=== PATIENT | female | born 1990 | race Caucasian/White ===

== ENCOUNTER → 2019-06-05 14:52 | Outpatient (CLI) | payer OTHER, SELFPAY ==
--- NOTE | 2019-06-05 14:58 | US_ITS ---
PROCEDURE: US OB /MATERNAL DETAIL CLINICAL INDICATION: uterine size date discrepancy/complication Evaluate for dates COMPARISON: No exams were available for comparison FINDINGS: There is a single live fetus which is in breech presentation. The cervix is closed and measures 3 cm. The placenta is posterior and grade 1. There does appear to be an average amount of amniotic fluid. Complete survey performed and was unremarkable on the submitted images as in PACS. No discrete anomalies identified on survey imaging by technologist. Active fetus. Three-vessel cord with satisfactory umbilical cord insertion. 4- chamber heart noted. Survey of brain & ventricles Unremarkable. Face and neck survey unremarkable. Diaphragm and chest views unremarkable. Abdomen: Both kidneys noted and unremarkable. Stomach noted and satisfactory. Spine: Survey of the spine satisfactory with no anomalies identified nor imaged. Both arms and legs noted. Amniotic Fluid: Adequate. Maternal adnexa: No significant findings. Measurements: Average ultrasound age 22weeks 5days. Gestational Age 22weeks 2days Estimated due date by ultrasound age 0810/04/2019. Estimated weight 529g BPD = 22weeks 4days OFD = 23 weeks 5 days HC = 22weeks 5days AC = 23weeks 2days FL = 22weeks 2days Growth Percentile= 67% Heart Rate = 138bpm Cerebellum = 24weeks Humerus = 22weeks 6days HC/AC is 1.12 CI is 0.73 FL/BPD is 0.7 FL/AC is 0.21 IMPRESSION: There is a single live fetus in breech presentation with an average ultrasound age 22 weeks and 5 days. All parameters correlate with no obvious anomalies. Please see above for detail Dictated by: Hao Peck MD 06/05/2019 17:11 Electronically signed by Hao Peck MD in [place] 06/05/2019 17:11
== END ==
PROVIDERS: PCP Nurse Practitioner; Visit Provider Nurse Practitioner Obstetrics & Gynecology
DX: O26.849 Uterine size-date discrepancy, unspecified trimester (principal)
CPT/HCPCS: 76811

== ENCOUNTER → 2019-08-06 11:08 | Outpatient (CLI) | payer OTHER, SELFPAY ==
[2019-08-06 12:29] LABS: Basophils % 0.1 % (0.1-2.0); Eosinophils # 0.2 K/mm3 (0.0-0.4); Eosinophils % 1.2 % (0.1-12.0); Hematocrit 27.8 % (37.0-47.0); Hemoglobin 9.3 g/dL (12.2-16.2); Mean Corpuscular HGB Conc 33.6 g/dL (31.8-35.4); Mean Corpuscular Hemoglobin 25.8 pg (27.0-31.2); Mean Platelet Volume 7.8 fl (7.4-10.4); Monocytes # 0.7 K/mm3 (0.1-1.0); Monocytes % 4.7 % (1.7-9.3); Neutrophils # 10.4 K/mm3 (1.8-7.8); Neutrophils % 72.9 % (37.0-80.0); Platelet Count 251 K/mm3 (142-424); Red Blood Count 3.62 M/mm3 (4.20-5.40); Red Cell Distribution Width 14.1 % (11.5-17.5); White Blood Count 14.3 K/mm3 (4.8-10.8)
[2019-08-07 11:05] LABS: HIV Screen 4th Generation wRfx Non Reactive (Non Reactive); Rubella Antibodies, IgG 2.53 index (Immune >0.99)
[2019-08-07 11:39] LABS: Hepatitis B Surface Antigen Negative (Negative); Rapid Plasma Reagin Ab Titer Non Reactive (NonRea<1:1)
[2019-08-07 11:40] LABS: Hepatitis C Antibody <0.1 s/co ratio (0.0-0.9)
[2019-08-09 08:03] LABS: Chlordiazepoxide <0.1 ug/mL (0.1-0.9)
[2019-08-09 12:40] LABS: Acetone Negative % (0.000-0.010)
[2019-08-09 12:41] LABS: Butalbital <1 ug/mL (1-10); Diazepam <0.1 ug/mL (0.1-0.9); Ethanol Negative % (0.000-0.010); Isopropanol Negative % (0.000-0.010); Pentobarbital <1 ug/mL (1-5)
== END ==
PROVIDERS: Visit Provider Nurse Practitioner Obstetrics & Gynecology
DX: Z34.90 Encounter for supervision of normal pregnancy, unspecified, unspecified trimester (principal); F19.11 Other psychoactive substance abuse, in remission
CPT/HCPCS: 36415; 80306; 85025; 86592; 86703; 86762; 86850; 87340; 87380; G0432

== ENCOUNTER → 2019-09-17 16:41 | Outpatient (CLI) | payer OTHER, SELFPAY | PROVIDERS: Visit Provider Nurse Practitioner Obstetrics & Gynecology | DX: Z34.90 Encounter for supervision of normal pregnancy, unspecified, unspecified trimester (principal) | CPT/HCPCS: 86403 ==

== ENCOUNTER → 2019-09-20 10:21 | Outpatient (CLI) | payer OTHER, SELFPAY ==
--- NOTE | 2019-09-20 10:21 | US_ITS ---
PROCEDURE: US OB BIOPHYSICAL PROFILE CLINICAL INDICATION: sga Small for gestational age TECHNIQUE: FINDINGS: The following parameters are obtained: Average ultrasound age is Average 36weeks 3days Estimated due date by ultrasound is 10/15/2019. Estimated weight is 2,796g. This is 14th percentile Average ultrasound age is 36 weeks 3 days. BPD 37 weeks 0 days, OFD 38 weeks 5 days, HC 36 weeks 5 days, AC 35 weeks 2 days, FL 36 weeks 4 days. The HC/AC is 1.03, CI 80 percent, FL/BPD 78 percent, FL/AC 23 percent Amniotic fluid index: 9.98cm Qualitative AFV: 2 breathing movements: 2 Gross body movements: 2 Tone: 2 Biophysical profile score: 8 No obvious anomalies evident. Placenta: Posterior and lateral and grade 2-3 IMPRESSION: Live IUP at 36 weeks 3 days with an estimated weight 2796 g which is 14th percentile. Biophysical profile is 8 of 8 Amniotic fluid index is lower normal at 10 mL Placenta is posterior and grade 2-3 Dictated by: Hao Peck MD 09/20/2019 12:01 Hao Peck MD in [facility] 09/20/2019 12:01
== END ==
PROVIDERS: PCP Nurse Practitioner; Visit Provider Nurse Practitioner Obstetrics & Gynecology
DX: O36.5990 Maternal care for other known or suspected poor fetal growth, unspecified trimester, not applicable or unspecified (principal)
CPT/HCPCS: 76811; 76819

== ENCOUNTER 2019-09-21 21:52 | Outpatient (CLI) | payer OTHER, SELFPAY ==
[2019-09-21 22:06] VITALS: BMI 34.0
[2019-09-21 22:38] VITALS: BP 128/66; PULSE 104; RESP 18; TEMP 37.2; O2SAT 98; BMI 34.0
[2019-09-21 22:42] LABS: Microscopic, Urine URINE MICROSCOPIC (MICROSCOPIC)
[2019-09-21 22:56] LABS: Appearance,Urine CLEAR (Clear); Bilirubin,Urine Negative (Negative); Blood, Urine TRACE-I (Negative); Color,Urine YELLOW (Yellow); Glucose,Urine (UA) Negative (Negative); Ketones,Urine Negative (Negative); Leukocyte Esterase,Urine Negative (Negative); Nitrate,Urine Negative (Negative); Protein,Urine Negative (Negative); Specific Gravity, Urine 1.025 (1.005-1.030); Urobilinogen,Urine 0.2 EU/dl (0.2)
[2019-09-21 23:00] LABS: RBC,Urine Occasional #/hpf (0-3); WBC,Urine Occasional #/hpf (0-3)
[2019-09-21 23:06] LABS: Benzodiazepines Screen,Urine Negative ng/ml (<200)
[2019-09-21 23:07] LABS: Amphetamine/Metha Screen,Urine Negative ng/ml (<1000); Barbiturates Screen,Urine Negative ng/ml (<200)
[2019-09-21 23:08] LABS: Cannabinoid Screen,Urine Negative ng/ml (<50)
[2019-09-21 23:09] LABS: Cocaine Screen,Urine Negative ng/ml (<300); Methadone Screen,Urine Negative ng/ml (<300)
[2019-09-21 23:10] LABS: Opiate Screen,Urine Negative ng/ml (<300); Phencyclidine Screen,Urine Negative ng/ml (<25)
[2019-09-25 22:52] LABS: Buprenorphine, Urine Positive (Cutoff=10)
== END 2019-09-21 23:35 | disposition home or self-care (01) ==
LOC: OBOUT 21:54 → OB 21:54
PROVIDERS: PCP Nurse Practitioner Obstetrics & Gynecology; Visit Provider Obstetrics & Gynecology
DX: O60.03 Preterm labor without delivery, third trimester (principal); Z3A.38 38 weeks gestation of pregnancy; M54.5 Low back pain; R10.2 Pelvic and perineal pain
CPT/HCPCS: 59025; 80305; 80307; 81001

== ENCOUNTER 2019-09-30 05:17 | Inpatient (IN) | payer OTHER, SELFPAY ==
[2019-09-30 05:26] VITALS: BMI 34.1
[2019-09-30 06:29] LABS: Microscopic, Urine URINE MICROSCOPIC (MICROSCOPIC)
[2019-09-30 06:37] LABS: Basophils % 0.2 % (0.1-2.0); Eosinophils # 0.2 K/mm3 (0.0-0.4); Hematocrit 28.5 % (37.0-47.0); Hemoglobin 9.4 g/dL (12.2-16.2); Lymphocytes # 3.9 K/mm3 (0.7-4.5); Lymphocytes % 19.3 % (10-50); Mean Corpuscular HGB Conc 33.1 g/dL (31.8-35.4); Mean Corpuscular Hemoglobin 25.1 pg (27.0-31.2); Mean Corpuscular Volume 75.9 fl (81-99); Mean Platelet Volume 8.4 fl (7.4-10.4); Monocytes % 5.1 % (1.7-9.3); Neutrophils # 15.1 K/mm3 (1.8-7.8); Neutrophils % 74.4 % (37.0-80.0); Platelet Count 259 K/mm3 (142-424); Red Blood Count 3.75 M/mm3 (4.20-5.40); Red Cell Distribution Width 16.2 % (11.5-17.5); White Blood Count 20.3 K/mm3 (4.8-10.8)
[2019-09-30 06:46] LABS: Appearance,Urine CLEAR (Clear); Bilirubin,Urine Negative (Negative); Blood, Urine TRACE-I (Negative); Glucose,Urine (UA) Negative (Negative); Ketones,Urine Negative (Negative); Leukocyte Esterase,Urine Negative (Negative); Nitrate,Urine Negative (Negative); Protein,Urine Negative (Negative); Urobilinogen,Urine 0.2 EU/dl (0.2)
[2019-09-30 06:47] LABS: MANUAL DIFFERENTIAL MANUAL DIFFERENTIAL (MANUAL DIFF)
[2019-09-30 06:56] LABS: Color,Urine Dark Yellow (Yellow)
[2019-09-30 06:59] LABS: Amphetamine/Metha Screen,Urine Negative ng/ml (<1000); Benzodiazepines Screen,Urine Negative ng/ml (<200)
[2019-09-30 07:00] LABS: Barbiturates Screen,Urine Negative ng/ml (<200)
[2019-09-30 07:01] LABS: Cannabinoid Screen,Urine Negative ng/ml (<50); Cocaine Screen,Urine Negative ng/ml (<300)
[2019-09-30 07:02] LABS: Methadone Screen,Urine Negative ng/ml (<300)
[2019-09-30 07:03] LABS: Opiate Screen,Urine Negative ng/ml (<300); Phencyclidine Screen,Urine Negative ng/ml (<25)
[2019-09-30 07:04] LABS: Coronavirus 19 IgG Antibody Negative (Negative); Coronavirus 19 IgM Antibody Negative (Negative)
[2019-09-30 07:13] LABS: Eosinophils % 1 % (0-3); Lymphocytes % 25 % (10-50); Monocytes % 7 % (2-9); Neutrophils % 66 % (42-76); Total Cells Counted 100
[2019-09-30 07:14] LABS: Platelet Estimate Normal; RBC Morphology Normal
[2019-09-30 07:15] LABS: RBC,Urine Occasional #/hpf (0-3); WBC,Urine Occasional #/hpf (0-3)
[2019-09-30 07:16] LABS: Bacteria,Urine Trace /lpf
[2019-09-30 07:20] VITALS: BP 118/64; PULSE 71; RESP 18; TEMP 36.8; O2SAT 99; BMI 34.0
--- NOTE | 2019-09-30 09:13 | HMH.OBAPHP ---
OB - H&P: HPI Antepartum - History of Present Illness Chief complaint: Term occasional contractions History of present illness: She is a 29-year-old 5 para 4 at 39+ weeks gestational age. She has been having some pressure and contractions. She wanted to just go ahead and deliver. Her has been otherwise uncomplicated. - History of Present Criteria for establishing EDC:: LMP confirmed by 1st trimester US care: good care Ultrasounds: normal 1st trimester US, normal mid trimester US Obstetrical complications: none Medical complications: none [facility] History I have reviewed the patient's past medical history: Yes Medical History: Denies:: Diabetes Mellitus Type 1, Diabetes Mellitus Type 2 *Have you ever received a pneumonia vaccine?: No *Have you received a flu vaccine this season?: No Laterality Cases: Bilateral: Tonsillectomy Other Surgeries: No: Amputation: No Fractures: No - *Social History Smoking Status: Current every day smoker Tobacco Type: cigarettes # Packs/Day (cigarettes): 1 Alcohol Intake: never Alcohol Intake Frequency:: other Substance Use Type: marijuana, tranquilizers, former substance user *Occupational Status:: unemployed *Travel in the last 8 weeks: None Family Hx:: No significant family history Para: 3 Review of Systems - Review of Systems Review of systems:: pertinent systems reviewed and negative unless documented below Meds Home Medications Medication Instructions Recorded Confirmed Type buprenorphine 8 mg-naloxone 2 mg 2 tab SUBLINGUAL DAILY tab 09/17/19 09/30/19 History sublingual tablet vitamin 1 tab PO DAILY tab 09/17/19 09/30/19 History no.76-iron,carbonyl 29 mg iron-folic acid 1 mg tablet hydrOXYzine HCL [Hydroxyzine HCl] 25 mg PO TID PRN 09/30/19 09/30/19 History Allergies Allergy/AdvReac Type Severity Reaction Status Date / Time codeine [CODEINE] Allergy Mild MILD RASH Verified 09/23/19 15:09 hydrocodone [HYDROCODONE] Allergy Mild MILD RASH Verified 09/23/19 15:09 ketorolac [From TORADOL] Allergy Mild Verified 09/23/19 15:09 tramadol [TRAMADOL] Allergy Mild Verified 09/23/19 15:09 morphine [MORPHINE] Allergy Unknown MIGRAINE Verified 09/23/19 15:09 Penicillins [PENICILLINS] Allergy Unknown Verified 08/17/20 15:09 OB - H&P: Exam - Physical Exam Vital signs: Temp Pulse Resp BP Pulse Ox 98.2 F 71 18 118/64 99 09/30/19 07:20 09/30/19 07:20 09/30/19 07:20 09/30/19 07:20 09/30/19 07:20 - Constitutional no acute distress - Routine HEENT Exam Head: Present: normocephalic Eye: Present: EOMI, PERRL ENT: Present: mucous membranes moist - Routine Neck Exam Present: supple, full ROM - Routine Respiratory Exam Absent: accessory muscle use (good air entry bilaterally), respiratory distress, wheezes, crackles - Routine Cardiovascular Exam Present: RRR. Absent: murmur - Routine Abdominal Exam Present: soft, normoactive bowel sounds. Absent: tenderness, distended, guarding - Routine Rectal Exam Patient deferred: visual exam, digital exam - Routine Exam Patient deferred: external exam, groin exam, perineal exam - Routine Extremities Exam Present: full ROM. Absent: cyanosis, edema - Routine Skin Exam Present: intact. Absent: cyanosis - Routine Neurological Exam Present: alert, oriented X3 - Routine Psychiatric Exam Present: normal affect OB - Results - Labs Labs: Short CBC 09/30/19 Range/Units 05:56 WBC 20.3 H* (4.8-10.8) K/mm3 Hgb 9.4 L (12.2-16.2) g/dL Hct 28.5 L (37.0-47.0) % Plt Count 259 (142-424) K/mm3 Urine 09/30/19 Range/Units 05:56 Urine Color Dark yellow (Yellow) Urine Appearance Clear (Clear) Urine pH 7.0 (5.0-8.5) Ur Specific [place] 1.020 (1.005-1.030) Urine Protein Negative (Negative) Urine Glucose (UA) Negative (Negative) OB - A/P Antepartum - Additional Plan
--- NOTE | 2019-09-30 09:16 | HMH.LABNOT ---
Labor Note - Subjective: Date: 09/30/19 Time: 09:16 regular contraction - Objective: NST:: Reactive Contractions:: every 2-3 minutes Cervical Dilation:: 2 Effacement:: 50% Station: -2 Membranes: artificially ruptured - Fetus: Monitoring?: Yes monitoring type:: External - Assessment: Labor progressing?: Yes Cephalopelvic disproportion?: No Patient Problems: All Active Problems (Acute) - Plan: Anesthesia for epidural?: Yes Continue to labor down?: Yes Plan for ?: No Continue to monitor?: Yes Start pushing?: No
--- NOTE | 2019-09-30 09:42 | HMH.PHAINT ---
MEDICATION RECONCILIATION COMPLETED ON PATIENT USING EXTERNAL FILL HISTORY FROM PHARMACY AND [facility] TO VERIFY SUBOXONE USAGE. -GAGAN KLINED
--- NOTE | 2019-09-30 10:51 | P.PN_ITS ---
[facility] Anesthesia Checklist - Patient Identification Patient Identification: Arm Band, Verbal (Name & ) - Structural Data Admitted From: Home Planned Operative Procedure/s: Labor epidural Consent for Planned Operative Procedure(s) Verified: Yes Verified Documents: Surgical Consent, History and Physical - Chart Verification Results Verified: CBC, UA (Urine toxicology) - Additional verifications Patient : Yes Anesthesia Reactions: No - Airway Assessment C-Spine Mobility Assessed: Yes TMJ Mobility Assessed: Yes Dentition: Poor Dentition - Neurological Assessment Level of Consciousness: Awake, Alert, Appropriate, Follows Commands Hx Seizures: No Numbness or tingling in extremities: No - Psychosocial Assessment Concerns Regarding Surgery: Pt appears in pain, anxious - Anesthesia Plan Anesthesia Risk discussed: Yes Anesthesia Plan: Verified ASA Class: III Anesthesia Type: Epidural - Preoperative Comments Pre-Operative Comments: Previous epidural placements, no prior complications noted [facility] History I have reviewed the patient's past medical history: Yes Medical History: Denies:: Diabetes Mellitus Type 1, Diabetes Mellitus Type 2 *Have you ever received a pneumonia vaccine?: No *Have you received a flu vaccine this season?: No Anesthesia experience/problems:: None Laterality Cases: Bilateral: Tonsillectomy Other Surgeries: No: Amputation: No Fractures: No - *Social History Smoking Status: Current every day smoker Tobacco Type: cigarettes # Packs/Day (cigarettes): 1 Alcohol Intake: never Alcohol Intake Frequency:: other Substance Use Type: former substance user, marijuana, heroin, tranquilizers *Occupational Status:: unemployed *Travel in the last 8 weeks: None Family Hx:: No significant family history Para: 3
--- NOTE | 2019-09-30 11:22 | HMH.LABNOT ---
Labor Note - Subjective: Date: 09/30/19 Time: 11:22 - Objective: NST:: Non-reactive Contractions:: every 2-3 minutes Cervical Dilation:: 4 Effacement:: 75% Station: -1 Membranes: artificially ruptured - Fetus: monitoring type:: External - Assessment: Labor progressing?: Yes Cephalopelvic disproportion?: No Patient Problems: All Active Problems (Acute) - Plan: Anesthesia for epidural?: Yes Continue to labor down?: Yes Plan for ?: No Continue to monitor?: Yes Start pushing?: No Comment:: She is doing very well. She is very comfortable. We will expect a vaginal delivery.
[2019-09-30 11:37] VITALS: BP 124/65; PULSE 68; RESP 18; TEMP 36.6
--- NOTE | 2019-09-30 14:15 | P.PCN_ITS ---
- Delivery Note Delivery Date:: 09/30/19 Delivery Time:: 14:11 Anesthesia Type: Epidural Was labor medically induced?: Yes Induction method: per pitocin protocol Gestational age (weeks): 39 Infant delivered prior to 39 weeks?: No Infant Gender: Female at 1 minute: 8 at 5 minutes: 9 Delivery Procedure:: She is a 29-year-old 4 para 3 at 39+ weeks gestational age. She complained of a lot of pressure and discomfort and as result of that we elected to induce her labor at term. She was started on IV oxytocin and had her membranes ruptured. She progressed under labor epidural to full dilation and delivered spontaneously a liveborn female child at 2:11 PM in the afternoon of September 30, 2019. On deliver the head it was noted that there was a loose nuchal cord. This was easily reduced followed by the anterior shoulder and the rest the infant's body atraumatically. The oropharynx and nasopharynx were bulb suction. The baby was vigorous so we allowed the cord to continue to pulsate for 1 minute. The cord was then doubly clamped and cut and the was placed on the mother's abdomen for further care. The nurses assigned Apgars of 8 at 1 minute and 9 at 5 minutes. We then obtained cord blood as well as cord pH. She received IV oxytocin using gentle traction on the cord and countertraction on the fundus I was able to easily deliver the placenta intact. Had normal three-vessel cord. She has O+ blood, she is rubella immune and was group B streptococcus negative. She plans to bottlefeed. Her leather sprayer is Dr. Linares. Estimated blood loss was approximately 400 cc. There were no perineal or vaginal lacerations. Placental Delivery Description: Spontaneous
[2019-09-30 14:49] LABS: ABG Base Excess -4.1 mmol/L (-2.4-2.3); ABG HCO3 21.6 mmhg (22.0-26.0); ABG Oxygen Saturation 70 % (90-100); ABG PCO2 40.3 mmhg (35.0-45.0); ABG PH 7.35 mmol/L (7.35-7.45); ABG TCO2 22.8 mmhg (23-27)
[2019-09-30 14:53] LABS: ABG PO2 28.2 mmhg (80-100)
[2019-09-30 16:15] VITALS: BP 118/73; PULSE 72; RESP 16; TEMP 37.1; O2SAT 100
[2019-10-01 06:28] LABS: Hematocrit 24.4 % (37.0-47.0)
[2019-10-01 08:07] VITALS: BP 124/79; PULSE 79; RESP 16; TEMP 37.3; O2SAT 100
--- NOTE | 2019-10-01 08:27 | HMH.ACPN2 ---
Internal Medicine - PN: Subj *Date: 10/01/19 *Time: 08:27 Interval history: She is doing well this morning. She is eating and drinking and ambulating. She is bottlefeeding. Her lochia is normal. Her hemoglobin is low at 8.0 but she started out at 9.4. Exam Vital signs and Labs for Last 24 Hours: Temp Pulse Resp BP Pulse Ox 98.7 F 72 16 118/73 100 09/30/19 16:15 09/30/19 16:15 09/30/19 16:15 09/30/19 16:15 09/30/19 16:15 Laboratory Results - last 24 hr 09/30/19 14:45: Specimen Source Umbilical cord, ABG pH 7.35, ABG pCO2 40.3, ABG pO2 28.2 L, ABG HCO3 21.6 L, ABG Total CO2 22.8 L, ABG O2 Saturation 70 L*, ABG Base Excess -4.1 L 10/01/19 06:00: Hgb 8.0 L, Hct 24.4 L I & O for Last 24 hours: Intake & Output 09/28/19 09/29/19 09/30/19 10/01/19 11:59 11:59 11:59 11:59 Weight 199 lb 0.004 oz - Constitutional no acute distress - *Routine HEENT Exam Head: Present: normocephalic Eye: Present: EOMI, PERRL ENT: Present: mucous membranes moist Assessment and Plan (1) Normal delivery Current visit: Yes Status: Acute Category: Medical Code(s): O80 - Encounter for full-term uncomplicated delivery (2) Anemia, Current visit: Yes Status: Acute Category: Medical Code(s): O90.81 - Anemia of the puerperium - Assessment and plan all Dx Assessment and Plan for all problems:: We will go ahead and start iron tablets twice daily. We will plan to send her home tomorrow.
--- NOTE | 2019-10-01 11:35 | SW/DCPLANNER ---
Addendum entered by Azalia Davalos 10/02/19 12:39: Joelle with the Cabinet did come and write a prevention plan for this patient: can discharge home with and follow up. Joelle: [phone] Addendum entered by Hannah Ragsdale 10/01/19 15:13: CALLED THE [facility] AND SPOKE WITH JOELLE.... GAVE HIM THE ID# [id number] AND CASE WAS ACCEPTED FOR INVESTIGATION... I HAVE NOTIFIED STAFF THAT SOMEONE WILL BE HERE TO SPEAK WITH PATIENT TMRW.... Original Note: RECEIVED REFERRAL FOR THIS PATIENT STATING PATIENT HAD LATE CARE, POSITIVE FOR THC X2 THIS AND PATIENT ADMITS TO USING HEROIN IN AUGUST....PATIENT PRESENTED IN TO [facility] AFTER FEELING LOWER PRESSURE AT 39 WEEKS GESTATION.. PATIENT HAS THREE OTHER CHILDREN..10 YR OLD BOY SUKH HAGER, 5 YR OLD BOY TARA HAGER AND 3 YR OLD GIRL MARISSA ANDINO... HER LAST ONE THAT WAS BORN YESTERDAY 09/29 A GIRL FITO HAGER... PATIENT STATES SHE IS IN A [facility] CLINIC AND TAKES 16 MG PER DAY AT [facility], THIS WAS VERIFIED BY PHARMACY..SHE STATED SHE DOES NOT GET WIC BUT IS SIGNING UP WHEN SHE DISCHARGES.. SHE STATED SHE GETS FOOD STAMPS AND LIVES IN SUBSIDIZED HOUSING IN [facility], SHE STATED HER CHILDREN DOES NOT HAVE A FATHER INVOLVED. ONE OF THE CHILDREN'S FATHER COMMITTED SUICIDE, THE OTHER 2 ARE INCARCERATED.. SHE STATED THE INFANT WILL BE FOLLOWED BY [facility] AND MD IS DR VILLAR.. WHILE SHE IS IN THE HOSPITAL DR YORK IS FOLLOWING THE INFANT AND STATED HE WILL BE KEEPING HER UNTIL THE END OF THE WEEK TO WATCH FOR WITHDRAW FROM THE [employer].. I DID MAKE A CALL TO [facility] FOR INVESTIGATION IF DEEMED NECESSARY ID# [id number] I ASKED HER IF SHE HAD EVERYTHING SHE NEEDS TO TAKE THE HOME AND SHE STATED SHE HAS HER CARSEAT, BABY BED, CLOTHES, DIAPERS AND BOTTLES.. HER MOTHER IS AT BEDSIDE AND WAS ASLEEP THE WHOLE TIME I WAS THERE.. I TOLD HER ABOUT HAVING HER CARSEAT CHECKED AT THE [facility] AND ENCOURAGED HER TO STOP DOWNTOWN ON HER WAY HOME.. SHE IS TO DISCHARGE TMRW..WILL FOLLOW UP LATER IN THE DAY WITH ID # TO SEE IF ITS BEEN ACCEPTED..
[2019-10-01 12:04] VITALS: BP 120/65; PULSE 75; RESP 16; TEMP 36.6; O2SAT 98
[2019-10-01 16:05] VITALS: BP 114/63; PULSE 72; RESP 16; TEMP 37.1; O2SAT 98
--- NOTE | 2019-10-02 10:15 | HMH.OBDCSM ---
General - General Admission date:: 09/30/19 Discharge date: 10/02/19 HPI - History of Present Illness History of present illness: She is a 29-year-old 4 para 3 who is 39 and 3 weeks gestational age. She has had some pressure and has had previous rapid deliveries. As result of that we elected to induce her labor at term. She also has been taking Subutex throughout the . She has a previous history of drug abuse. Hospital Course Hospital Course: She was started on IV oxytocin and had her membranes ruptured. She progressed under labor epidural to full dilation and delivered spontaneously a liveborn female child at 2:11 PM in the afternoon of September 30, 2019. The baby weighed 6 pounds 7 ounces and was 18-1/2 inches long. She had Apgars of 8 at 1 minute and 9 at 5 minutes. She has done well and has remained afebrile with her hospitalization. She had anemia prior to her delivery and her hemoglobin dropped to 8.0. She is however completely asymptomatic. We have started her on iron tablets. I suspect she has a poor diet. She has O+ blood, she is rubella immune and was group B streptococcus negative. She is bottlefeeding. Her project safety manager is Dr. Linares. She is discharged home to follow-up with me in approximately 2 weeks time. She will continue with her vitamins and iron. She was given the usual instructions with respect to limiting her activity, driving and sexual activity. Her condition on discharge is stable and improved. Rhogam Administration: Not Indicated Objective Vital signs: Temp Pulse Resp BP Pulse Ox 98.7 F 72 16 114/63 98 10/01/19 16:05 10/01/19 16:05 10/01/19 16:05 10/01/19 16:05 10/01/19 16:05 no acute distress - *Routine HEENT Exam Head: Present: normocephalic Eye: Present: EOMI, PERRL ENT: Present: mucous membranes moist DS: Diagnosis - Discharge Diagnosis (1) Normal delivery Status: Acute (2) Anemia, Status: Acute Discharge Plan - Patient Discharge Instructions ACTIVITY: No heavy lifting DIET: continue same diet Additional Instructions: No heavy lifting, no driving for 2 weeks, nothing in the vagina for 6 weeks. Patient Instructions: Depression, Hemorrhage, DI for Labor and Delivery, Vaginal , DI for Pre-eclampsia, [facility] Post Discharge Instructions, Preventing the Spread of Coronavirus Discharge Instructions - Follow up Plan Follow up with: Vince Lozoya MD [Staff Physician] - Disposition: Home, Self-Long-Term Medications: Home Medications Medication Instructions Recorded Confirmed Type buprenorphine 8 mg-naloxone 2 mg 2 tab SL DAILY tab 09/17/19 09/30/19 History sublingual tablet vitamin 1 tab PO DAILY tab 09/17/19 09/30/19 History no.76-iron,carbonyl 29 mg iron-folic acid 1 mg tablet hydrOXYzine HCL [Hydroxyzine HCl] 25 mg PO TIDP PRN 09/30/19 09/30/19 History Ferrous Sulfate [Ferrous Sulfate 325 mg PO BID #60 tab 10/02/19 Rx 325mg Tablet] Prescriptions/Medication Reconciliation: New Ferrous Sulfate [Ferrous Sulfate 325mg Tablet] 325 mg PO BID #60 tab Continued buprenorphine 8 mg-naloxone 2 mg sublingual tablet 2 tab SL DAILY tab vitamin no.76-iron,carbonyl 29 mg iron-folic acid 1 mg tablet 1 tab PO DAILY tab hydrOXYzine HCL [Hydroxyzine HCl] 25 mg PO TIDP PRN PRN Reason: Itching - Problem Reconciliation Problems Reviewed?: Yes
[2019-10-06 18:48] LABS: Buprenorphine Positive (.)
== END 2019-10-02 13:30 | disposition home or self-care (01) | DRG 807 ==
PROVIDERS: Admitting Provider Nurse Practitioner Obstetrics & Gynecology; PCP Nurse Practitioner; Visit Provider Nurse Practitioner Obstetrics & Gynecology
DX: O69.81X0 Labor and delivery complicated by cord around neck, without compression, not applicable or unspecified (principal); Z37.0 Single live birth; Z3A.39 39 weeks gestation of pregnancy; F11.21 Opioid dependence, in remission; O99.330 Smoking (tobacco) complicating pregnancy, unspecified trimester; F17.210 Nicotine dependence, cigarettes, uncomplicated
CPT/HCPCS: 59409; 59025; 80305; 80348; 81001; 82803; 85007; 85014; 85018; 85025; 86328; 86850; 94761; J0574

== ENCOUNTER → 2020-07-06 12:38 | Outpatient (CLI) | payer OTHER, SELFPAY ==
[2020-07-06 13:20] LABS: Basophils % 0.5 % (0.1-2.0); Eosinophils # 0.1 K/mm3 (0.0-0.4); Eosinophils % 1.5 % (0.1-12.0); Hematocrit 34.9 % (37.0-47.0); Hemoglobin 11.2 g/dL (12.2-16.2); Lymphocytes # 2.5 K/mm3 (0.7-4.5); Lymphocytes % 26.1 % (10-50); Mean Corpuscular HGB Conc 31.9 g/dL (31.8-35.4); Mean Corpuscular Volume 72.1 fl (81-99); Mean Platelet Volume 7.2 fl (7.4-10.4); Monocytes # 0.5 K/mm3 (0.1-1.0); Monocytes % 5.2 % (1.7-9.3); Neutrophils # 6.5 K/mm3 (1.8-7.8); Neutrophils % 66.8 % (37.0-80.0); Platelet Count 293 K/mm3 (142-424); Red Blood Count 4.85 M/mm3 (4.20-5.40); Red Cell Distribution Width 14.4 % (11.5-17.5); White Blood Count 9.7 K/mm3 (4.8-10.8)
[2020-07-06 14:43] LABS: Blood Urea Nitrogen 14 mg/dl (7-17); Calcium 9.3 mg/dl (8.4-10.2); Carbon Dioxide 25 mmol/L (22.0-30.0); Chloride 105 mmol/L (98-107); Estimated Glomerular Filt Rate 98 ml/min (>60); GFR (African American) 119 ML/MIN (>60); Glucose 110 mg/dl (74-100); HCG Qualitative, Serum Negative (Negative); Sodium 138 mmol/L (136-145)
== END ==
PROVIDERS: Visit Provider Nurse Practitioner Obstetrics & Gynecology
DX: Z01.812 Encounter for preprocedural laboratory examination (principal); Z11.52 Encounter for screening for COVID-19
CPT/HCPCS: 36415; 80048; 84703; 85025; U0003

== ENCOUNTER 2020-07-08 05:54 | Day surgery (SDC) | payer OTHER, SELFPAY ==
[2020-06-30 13:42] VITALS: BMI 36.6
[2020-07-08] VITALS (14 sets, daily range): BP systolic 114–141; BP diastolic 53–93; PULSE 60–83; RESP 16–22; TEMP 36.4–36.6; O2SAT 95–99
--- NOTE | 2020-07-08 07:06 | HMH.ANESCL ---
[facility] Anesthesia Checklist - Patient Identification Patient Identification: Arm Band - Structural Data Admitted From: Home Planned Operative Procedure/s: Lap. salpingectomy Consent for Planned Operative Procedure(s) Verified: Yes - NPO Status Verified Time NPO: 00:00 - Additional verifications Anesthesia Reactions: No Hx Blood Transfusions: No Blood Transfusion Reaction: No - Airway Assessment C-Spine Mobility Assessed: Yes TMJ Mobility Assessed: Yes Dentition: Edentulous - Neurological Assessment Level of Consciousness: Awake Hx Seizures: No Numbness or tingling in extremities: No - Anesthesia Plan Anesthesia Risk discussed: Yes Anesthesia Plan: Verified ASA Class: II Anesthesia Type: General [facility] History I have reviewed the patient's past medical history: Yes Medical History: Reports:: Anxiety, Depression, Migraine Denies:: Cancer, Diabetes Mellitus Type 1, Diabetes Mellitus Type 2, Internal Pacemaker, MRSA, Seizures *Have you ever received a pneumonia vaccine?: No *Have you received a flu vaccine this season?: No Other Medical History: Reports: Other. Denies: Blood Transfusion Reaction Anesthesia experience/problems:: None Laterality Cases: Bilateral: Tonsillectomy Other Surgeries: Yes: Cholecystectomy, Other. No: , Pacemaker Amputation: No Fractures: No - *Social History Smoking Status: Current every day smoker Tobacco Type: e-cigarettes # Packs/Day (cigarettes): 1 Alcohol Intake: never Alcohol Intake Frequency:: other Substance Use Type: former substance user, marijuana, heroin, tranquilizers, methamphetamine *Occupational Status:: other Housing: house *Travel in the last 8 weeks: None - Psychiatric History Pschychiatric History:: Reports:: Anxiety, Depression Family Hx:: Diabetes, Coronary Artery Disease, Hypertension, Cancer, Hyperlipidemia, Mental illness, Alcoholism, Substance abuse, Anemia, Heart Attack, Kidney Disease, Other
--- NOTE | 2020-07-08 08:11 | P.OP_ITS ---
Date of procedure: 07/08/20 Pre-op Diagnosis:: Desire for sterilization Post-op Diagnosis:: Desire for sterilization Procedure performed:: Laparoscopic bilateral salpingectomy Surgeon:: Vince Lozoya MD SENIOR LIVING SALES COUNSELOR:: Other (CLYDE MCGUIRE) Anesthesia: GETA Estimated blood loss (mL): 25 Clinical Note:: She is a 29-year-old lady who expressed desire for sterilization. The risks and benefits as well as the irreversibility of bilateral salpingectomy were discussed with the patient prior to surgery. Operative findings:: She had a normal-appearing anteverted uterus. The IUD strings were in the correct position. We left the IUD in place. Ovaries and tubes appeared normal. Deep pelvis appeared normal. Upper abdomen appeared normal. Operative note:: She was taken to the operating room where general anesthesia was found be adequate. She was prepped and draped in normal sterile fashion in the jacky ilithotomy position. A weighted speculum was placed in the vagina and the anterior lip of the cervix was grasped with a tenaculum. I then inserted an acorn uterine manipulator into the cervical os. . I changed gloves and injected 10 cc of 0.5% ropivacaine around her umbilicus and made a small incision within the umbilicus. I inserted a Veress needle into the abdominal cavity. The peritoneal cavity was then insufflated with carbon dioxide gas to a pressure of 20 mmHg. I then inserted a 5 millimeter trocar under direct vision. I injected through and through the pubic hairline, made a small incision here and inserted an 8 mm trocar under direct vision. I identified the inferior epigastric artery on the left side, went lateral to these and injected through and through. I then placed a 5 mm trocar here under direct vision. The pelvis and upper abdomen were then inspected and the findings were as previously dictated. I grasped the right tube at the cornua and using harmonic scalpel on coagulation mode I cut through the tube. I then grasped the distal tube and using harmonic scalpel cut along the mesosalpinx. The tube was removed through 8 mm trocar site. This was similarly performed on the patient's left side. I then injected 30 cc of 0.5% ropivacaine into the pelvis. After assuring hemostasis the gas was let out of the abdomen and hemostasis was once again assured. The abdomen was then reinsufflated. The secondary trochars were removed under direct vision. The gas was let out her abdomen. The primary trocar was then removed. The 8 mm trocar site was closed deeply with 2-0 Vicryl suture followed by subcuticular 4-0 Monocryl suture. The 5 mm trocar sites were closed with subcuticular 4-0 Monocryl. Sterile dressings were applied. The patient tolerated the procedure well and was taken to the recovery room in excellent condition. All sponge instrument and needle counts were correct. The estimated blood loss was less than 25 cc. Condition: stable Disposition: PACU Specimens:: Bilateral fallopian tubes Complications:: None
--- NOTE | 2020-07-08 08:19 | P.PN_ITS ---
[facility] Anesthesia Record Part I Intake, IV Amount: 1,000 Estimated blood loss (mL): 25 Urine output (mL): 0 Blood Pressure: 114/67 SaO2: 95 Pulse Rate: 77 Respiratory Rate: 19 Temperature: 97.7 F Patient is:: Drowsy, Oral/Nasal airway Stable to PACU at:: 08:16
--- NOTE | 2020-07-08 09:35 | PC.NURSE ---
0919-pt transported to post op via stretcher w/laurie rails up and detailed bedside report given to JoselitoRN, pt continues to report pain is easing, pt talking to staff and laughing and appears more relaxed and resting easier, vss, drinking water w/out difficulty, denies nausea, pt stable
--- NOTE | 2020-07-09 09:10 | HMH.ANESII ---
[facility] Anesthesia Record Part II Discharge Time: 09:16 Destination: Surgical Day Care (OP Surgery) PACU nurse assessment reviewed?: Yes Patient Condition:: Good Anesthesia Complications:: None Swallowing reflex intact?: Yes Cyanosis?: No Blood Pressure: 119/66 Pulse Rate: 69 Temperature: 97.7 F Mental Status: Alert & Oriented Pain level:: 6 Nausea and/or vomitting:: None Intake, IV Amount: 0
[2020-07-09 09:11] VITALS: BP 119/66; PULSE 69; TEMP 36.5
== END 2020-07-08 09:52 | disposition home or self-care (01) ==
LOC: OR 05:56
PROVIDERS: PCP Emergency Medicine; Visit Provider Nurse Practitioner Obstetrics & Gynecology
PROC: (CPT 58661; principal; 2020-07-08 07:30)
DX: Z30.2 Encounter for sterilization (principal); Z97.5 Presence of (intrauterine) contraceptive device; F41.9 Anxiety disorder, unspecified; F32.9 Major depressive disorder, single episode, unspecified; G43.909 Migraine, unspecified, not intractable, without status migrainosus; Z90.49 Acquired absence of other specified parts of digestive tract; Z72.0 Tobacco use; F11.11 Opioid abuse, in remission; F12.11 Cannabis abuse, in remission; F15.11 Other stimulant abuse, in remission; Z83.3 Family history of diabetes mellitus; Z82.49 Family history of ischemic heart disease and other diseases of the circulatory system
CPT/HCPCS: 58661; 96374; J2405

== ENCOUNTER → 2020-10-30 17:14 | Outpatient (CLI) | payer OTHER, SELFPAY ==
[2020-10-30 19:55] LABS: Amphetamine/Metha Screen,Urine Negative ng/ml (<1000)
[2020-10-30 19:56] LABS: Barbiturates Screen,Urine Negative ng/ml (<200); Benzodiazepines Screen,Urine Negative ng/ml (<200)
[2020-10-30 19:57] LABS: Cannabinoid Screen,Urine Negative ng/ml (<50); Cocaine Screen,Urine Negative ng/ml (<300)
[2020-10-30 19:59] LABS: Methadone Screen,Urine Negative ng/ml (<300); Opiate Screen,Urine Negative ng/ml (<300)
[2020-10-30 20:00] LABS: Phencyclidine Screen,Urine Negative ng/ml (<25)
== END ==
PROVIDERS: Visit Provider Emergency Medicine
DX: Z79.899 Other long term (current) drug therapy (principal)
CPT/HCPCS: 80305

== ENCOUNTER → 2020-12-24 14:35 | Outpatient (CLI) | payer OTHER, SELFPAY ==
[2020-12-24 15:46] LABS: Amphetamine/Metha Screen,Urine Negative ng/ml (<1000); Barbiturates Screen,Urine Negative ng/ml (<200)
[2020-12-24 15:47] LABS: Benzodiazepines Screen,Urine Negative ng/ml (<200)
[2020-12-24 15:48] LABS: Cannabinoid Screen,Urine Negative ng/ml (<50); Cocaine Screen,Urine Negative ng/ml (<300)
[2020-12-24 15:49] LABS: Methadone Screen,Urine Negative ng/ml (<300); Opiate Screen,Urine Negative ng/ml (<300)
[2020-12-24 15:50] LABS: Phencyclidine Screen,Urine Negative ng/ml (<25)
== END ==
PROVIDERS: Visit Provider Nurse Practitioner Family
DX: G89.29 Other chronic pain (principal); M79.2 Neuralgia and neuritis, unspecified
CPT/HCPCS: 80305

== ENCOUNTER 2021-04-09 19:55 | Emergency (ER) | payer OTHER, SELFPAY ==
[2021-04-09 19:56] VITALS: BP 140/89; PULSE 88; RESP 18; TEMP 37.2; O2SAT 99; BMI 37.8
--- NOTE | 2021-04-09 20:51 | HMH.EDPSYCH ---
ED Disposition Clinical Impression: Acute anxiety, Abnormal drug screen Disposition: Home, Self-Care Condition on Discharge: Good Instructions: DI for Anxiety -- Adult Additional Instructions: see pcp and therapist for follow up Referrals: Dylon Gray MD [Primary Care Provider] - - Critical Care Critical Care Time: No Attestation: On 04/09/21, the high probability of a clinically significant, sudden or life threatening deterioration of the following system(s) required my full and direct attention, intervention and personal management. The time I documented below is in addition to time spent performing reported procedures but includes the following listed in this critical care notation. Medical Decision Making - Medical Records Medical records reviewed: Yes: I reviewed the patient's medical records. - Kailash Inquiry Pt receiving controlled substance: No Vital Signs: 04/09/21 19:56 Temperature 98.9 F Temperature Source Oral Pulse Rate [Left Radial] 88 Respiratory Rate 18 Blood Pressure [Right Arm] 140/89 Blood Pressure Mean [Right Arm] 106 02 Sat by Pulse Oximetry 99 Oxygen Delivery Method Room Air - Lab Data Lab results reviewed: Yes: I reviewed the patient's lab results. Lab Results 04/09/21 20:58: Urine Opiates Screen Negative, Urine Methadone Screen Negative, Ur Barbituates Screen Negative, Ur Phencyclidine Scrn Negative, Ur Amphetamines Screen Positive H, U Benzodiazepines Scrn Negative, Urine Cocaine Screen Negative, U Marijuana (THC) Screen Positive H 04/09/21 20:58: Urine Color Yellow, Urine Appearance Clear, Urine pH 6.5, Ur Specific [place] 1.020, Urine Protein 2+, Urine Glucose (UA) Negative, Urine Ketones Negative, Urine Blood 1+, Urine Nitrate Negative, Urine Bilirubin Negative, Urine Urobilinogen 0.2, Ur Leukocyte Esterase Negative, Urine RBC 3-5, Urine WBC 3-5, Ur Squamous Epith Cells 5-10, Urine Bacteria Trace 04/09/21 20:58: Urine HCG, Qual Negative 04/09/21 21:29: WBC 11.5 H, RBC 5.60 H, Hgb 13.1, Hct 42.0, MCV 74.9 L, MCH 23.4 L, MCHC 31.3 L, RDW 15.2, Plt Count 321, MPV 7.3 L, Neut % (Auto) 72.9, Lymph % (Auto) 21.0, [place] % (Auto) 4.1, Eos % (Auto) 0.8, Baso % (Auto) 1.3, Neut # (Auto) 8.4 H, Lymph # (Auto) 2.4, [place] # (Auto) 0.5, Eos # (Auto) 0.1, Baso # (Auto) 0.2 04/09/21 21:29: Sodium 139, Potassium 4.1, Chloride 100, Carbon Dioxide 27, Anion Gap 16.1 H, BUN 12, Creatinine 0.60, Estimated Creat Clear 214, Estimated GFR 117, Est GFR ( Amer) 141, Glucose 103 H, Calcium 9.5, Total Bilirubin 0.6, AST 40 H, ALT 48, Alkaline Phosphatase 78, Troponin I < 0.01, Total Protein 8.8 H, Albumin 5.1 H, Globulin 3.7 H, Albumin/Globulin Ratio 1.4, TSH 1.29, Thyroxine (T4) 8.1, Salicylates < 1.0 L, Acetaminophen < 10 L 04/09/21 21:29: Plasma/Serum Alcohol < 10 Result diagrams: 04/09/21 21:29 04/09/21 21:29 Orders (Tests/Meds): ORDERS Category Date Time Status Troponin I Q3H Lab 04/10/21 00:30 Ordered Troponin I Q3H Lab 04/10/21 03:30 Ordered Medical Decision Narrative: step ina is here and pt and step mom feel that it is safe to go home and follow as op - go to [facility] if gets worse - do not feel hold is necessary and reviewed uds Psych HPI - General Chief Complaint: Psychiatric Symptoms Stated Complaint: eval Time Seen by Provider: 04/09/21 20:00 Mode of Arrival: Ambulatory Source of Information: Patient, Medical Record Limitations: No Limitations Description of Symptoms (Recalled from ER Triage Doc. by RN): PT REQUEST MENTAL HEALTH EVAL TO GET HER KIDS BACK. PT REPORTS THAT HER FAMILY REQUESTED THIS AND CALLED [facility] ON HER. PT REPORTS THAT SHE HAS BEEN SEEN BY A MENTAL HEALTH PROFESSIONAL. PT DENIES HI/SI - History of Present Illness HPI Narrative: pt with anxiety and hearing voices at times - but thinks maybe sounds from nearby apts and phone noise - discussed with her subox clinic therapist -and was thinking of eval at [facility] as inpt or o
[2021-04-09 21:16] LABS: Barbiturates Screen,Urine Negative ng/ml (<200)
[2021-04-09 21:17] LABS: Benzodiazepines Screen,Urine Negative ng/ml (<200)
[2021-04-09 21:18] LABS: Cannabinoid Screen,Urine Positive ng/ml (<50); Cocaine Screen,Urine Negative ng/ml (<300)
[2021-04-09 21:19] LABS: Methadone Screen,Urine Negative ng/ml (<300); Opiate Screen,Urine Negative ng/ml (<300)
[2021-04-09 21:20] LABS: Phencyclidine Screen,Urine Negative ng/ml (<25)
[2021-04-09 21:25] LABS: Microscopic, Urine URINE MICROSCOPIC (MICROSCOPIC)
[2021-04-09 21:26] LABS: Appearance,Urine CLEAR (Clear); Bilirubin,Urine Negative (Negative); Blood, Urine 1+ (Negative); Color,Urine YELLOW (Yellow); Glucose,Urine (UA) Negative (Negative); Ketones,Urine Negative (Negative); Leukocyte Esterase,Urine Negative (Negative); Nitrate,Urine Negative (Negative); PH,Urine 6.5 (5.0-8.5); Protein,Urine 2+ (Negative); Urobilinogen,Urine 0.2 EU/dl (0.2)
[2021-04-09 21:29] LABS: Urine Pregnancy, HCG Qual. Negative (Negative)
--- NOTE | 2021-04-09 21:33 | PC.NURSE ---
Spoke with [facility]'s department regarding patients claim that she was forced to come to the ER to be psychiatrically evaluated. Per [place], patient was hearing voices earlier today and they were notified by her sister. They explained to the patient that it would be helpful if she were to speak to a mental health professional but she was not being forced to check in.
[2021-04-09 21:37] LABS: Bacteria,Urine Trace /lpf
[2021-04-09 21:40] LABS: Basophils # 0.2 K/mm3 (0-0.2); Basophils % 1.3 % (0.1-2.0); Eosinophils # 0.1 K/mm3 (0.0-0.4); Eosinophils % 0.8 % (0.1-12.0); Hemoglobin 13.1 g/dL (12.2-16.2); Lymphocytes # 2.4 K/mm3 (0.7-4.5); Mean Corpuscular HGB Conc 31.3 g/dL (31.8-35.4); Mean Corpuscular Hemoglobin 23.4 pg (27.0-31.2); Mean Corpuscular Volume 74.9 fl (81-99); Mean Platelet Volume 7.3 fl (7.4-10.4); Monocytes # 0.5 K/mm3 (0.1-1.0); Monocytes % 4.1 % (1.7-9.3); Neutrophils # 8.4 K/mm3 (1.8-7.8); Neutrophils % 72.9 % (37.0-80.0); Platelet Count 321 K/mm3 (142-424); Red Cell Distribution Width 15.2 % (11.5-17.5); White Blood Count 11.5 K/mm3 (4.8-10.8)
[2021-04-09 21:45] LABS: Amphetamine/Metha Screen,Urine Positive ng/ml (<1000)
--- NOTE | 2021-04-09 21:51 | PC.NURSE ---
PT CONTINUES TO DENY SI/HI AT THIS TIME. PT WAITING ON RIDE. M.
[2021-04-09 21:52] LABS: Alanine Aminotransferase 48 U/L (12-78); Albumin Level 5.1 g/dl (3.5-5.0); Albumin/Globulin Ratio 1.4 (1.1-1.8); Alkaline Phosphatase 78 U/L (38-126); Anion Gap 16.1 mEq/L (5-15); Aspartate Amino Transferase 40 U/L (14-36); Bilirubin,Total 0.6 mg/dl (0.2-1.3); Blood Urea Nitrogen 12 mg/dl (7-17); Calcium 9.5 mg/dl (8.4-10.2); Carbon Dioxide 27 mmol/L (22.0-30.0); Chloride 100 mmol/L (98-107); Creatinine Clearance Estimated 214 mL/min (50-200); Estimated Glomerular Filt Rate 117 ml/min (>60); GFR (African American) 141 ML/MIN (>60); Globulin 3.7 g/dL (1.3-3.2); Glucose 103 mg/dl (74-100); Potassium 4.1 mmoL/L (3.5-5.1); Sodium 139 mmol/L (136-145); Total Protein,Serum 8.8 g/dl (6.3-8.2)
[2021-04-09 22:06] LABS: Acetaminophen < 10 ug/ml (10-30); Ethyl Alcohol < 10 mg/dl (0-10); Salicylate < 1.0 mg/dL (2.0-20.0); Troponin I < 0.01 ng/ml (0.00-0.034)
[2021-04-09 22:08] LABS: T4 (Thyroxine) 8.1 ug/dl (5.53-11.0)
--- NOTE | 2021-04-09 22:18 | PC.NURSE ---
NO ACUTE DISTRESS NOTED. PT CONTINUES TO DENY HI/SI.
[2021-04-09 22:22] LABS: Thyroid Stimulating Hormone 1.29 uIU/mL (0.465-4.68)
[2021-04-09 23:11] VITALS: BP 140/80; PULSE 80; RESP 20; TEMP 36.8; O2SAT 99
[2021-04-09 23:12] VITALS: BP 142/75; PULSE 82; RESP 18; TEMP 37.2; O2SAT 99
== END 2021-04-09 23:14 | disposition home or self-care (01) ==
PROVIDERS: Emergency Provider Emergency Medicine; PCP Emergency Medicine
DX: R82.5 Elevated urine levels of drugs, medicaments and biological substances (principal); F41.9 Anxiety disorder, unspecified; F32.A Depression, unspecified; F17.210 Nicotine dependence, cigarettes, uncomplicated; G43.909 Migraine, unspecified, not intractable, without status migrainosus; Z79.899 Other long term (current) drug therapy; Z88.0 Allergy status to penicillin; Z88.5 Allergy status to narcotic agent; Z88.6 Allergy status to analgesic agent; Z88.8 Allergy status to other drugs, medicaments and biological substances; R44.0 Auditory hallucinations; Z95.0 Presence of cardiac pacemaker; Z82.49 Family history of ischemic heart disease and other diseases of the circulatory system; Z83.438 Family history of other disorder of lipoprotein metabolism and other lipidemia; Z81.1 Family history of alcohol abuse and dependence; Z81.3 Family history of other psychoactive substance abuse and dependence; Z84.1 Family history of disorders of kidney and ureter; Z81.8 Family history of other mental and behavioral disorders; Z84.89 Family history of other specified conditions
CPT/HCPCS: 80053; 80305; 80329; 81001; 81025; 84436; 84443; 84484; 85025; 99283

== ENCOUNTER → 2021-05-25 12:02 | Outpatient (CLI) | payer OTHER, SELFPAY ==
[2021-05-25 19:37] LABS: Amphetamine/Metha Screen,Urine Negative ng/ml (<1000)
[2021-05-25 19:39] LABS: Barbiturates Screen,Urine Negative ng/ml (<200)
[2021-05-25 19:40] LABS: Benzodiazepines Screen,Urine Negative ng/ml (<200); Cocaine Screen,Urine Negative ng/ml (<300)
[2021-05-25 19:41] LABS: Methadone Screen,Urine Negative ng/ml (<300)
[2021-05-25 19:42] LABS: Opiate Screen,Urine Negative ng/ml (<300); Phencyclidine Screen,Urine Negative ng/ml (<25)
[2021-05-25 20:02] LABS: Cannabinoid Screen,Urine Positive ng/ml (<50)
== END ==
PROVIDERS: PCP Emergency Medicine; Visit Provider Emergency Medicine
DX: Z79.899 Other long term (current) drug therapy (principal)
CPT/HCPCS: 80305

== ENCOUNTER 2021-05-30 18:45 | Emergency (ER) | payer OTHER, SELFPAY ==
[2021-05-30 18:46] VITALS: BP 140/86; PULSE 120; RESP 28; TEMP 37; O2SAT 98; BMI 36.9
[2021-05-30 19:01] VITALS: BP 140/86; PULSE 113; O2SAT 100
--- NOTE | 2021-05-30 19:03 | XR_ITS ---
PROCEDURE INFORMATION: Exam: XR Left Knee Exam date and time: 05/30/2021 7:22 PM Age: 30 years old Clinical indication: Injury or trauma; Other: Twisted knee running a 3 legged race ; Sprain or strain; Patella or knee; Left TECHNIQUE: Imaging protocol: XR Left knee. Views: 3 views. COMPARISON: No relevant prior studies available. FINDINGS: Bones/joints: No acute fracture or dislocation. 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 Soft tissues: Normal. IMPRESSION: No acute fracture or dislocation.
--- NOTE | 2021-05-30 19:06 | HMH.EDGENADL ---
ED Disposition Condition on Discharge: Good - Critical Care Critical Care Time: No <EmilioMarcsu - Last Filed: 05/30/21 20:02> <Dylon Gray - Last Filed: 05/30/21 20:38> Clinical Impression: Shortness of breath, Atypical chest pain Left knee sprain Qualifiers: Encounter type: initial encounter Involved ligament of knee: unspecified ligament Qualified Code(s): S83.92XA - Sprain of unspecified site of left knee, initial encounter Disposition: Home, Self-Care Instructions: DI for Acute Pain -- Adult Additional Instructions: use inhaler and see ortho and pcp for follow up Referrals: Dylon Gray MD [Primary Care Provider] - Kobi Baker MD [Staff Physician] - Attestation: On 05/30/21, the high probability of a clinically significant, sudden or life threatening deterioration of the following system(s) required my full and direct attention, intervention and personal management. The time I documented below is in addition to time spent performing reported procedures but includes the following listed in this critical care notation. Medical Decision Making - Kailash Inquiry Pt receiving controlled substance: No - Lab Data Result diagrams: 05/30/21 19:26 05/30/21 19:26 - Radiology Data #1 Image(s): Chest, Knee Image Reviewed: Yes I reviewed the patient's radiology image Preliminary Findings: Normal/NAD <Marcus Jhaveri - Last Filed: 05/30/21 20:02> - Lab Data Lab results reviewed: Yes: I reviewed the patient's lab results. Result diagrams: 05/30/21 19:26 05/30/21 19:26 - CT Data CT Scan: Chest Time Received: 20:[address] Reviewed: Yes: I have viewed the radiologist's interpretation Preliminary Findings: Abnormal (no pul emboli) <Dylon Gray - Last Filed: 05/30/21 20:38> Vital Signs: 05/30/21 18:46 05/30/21 19:01 Temperature 98.6 F Temperature Source Oral Pulse Rate 113 H Pulse Rate [Radial] 120 H Respiratory Rate 28 H Blood Pressure 140/86 Blood Pressure [Right Arm] 140/86 Blood Pressure Mean [Right Arm] 104 Blood Pressure Position [Right Arm] Sitting 02 Sat by Pulse Oximetry 98 100 Oxygen Delivery Method Room Air Room Air - Lab Data Lab Results 05/30/21 19:26: WBC 10.0, RBC 4.16 L, Hgb 10.0 L, Hct 29.9 L, MCV 71.9 L, MCH 24.1 L, MCHC 33.5, RDW 15.5, Plt Count 222, MPV 7.7, Neut % (Auto) 58.4, Lymph % (Auto) 31.4, [place] % (Auto) 5.5, Eos % (Auto) 3.0, Baso % (Auto) 1.8, Neut # (Auto) 5.8, Lymph # (Auto) 3.1, [place] # (Auto) 0.5, Eos # (Auto) 0.3, Baso # (Auto) 0.2 05/30/21 19:26: D-Dimer 0.67 H 05/30/21 19:26: Sodium 138, Potassium 4.0, Chloride 105, Carbon Dioxide 25, Anion Gap 12.0, BUN 8, Creatinine 0.70, Estimated Creat Clear 185, Estimated GFR 98, Est GFR ( Amer) 118, Glucose 177 H, Calcium 8.7, Total Bilirubin 0.3, AST 45 H, ALT 53, Alkaline Phosphatase 91, Troponin I < 0.01, Total Protein 6.5 D, Albumin 4.0, Globulin 2.5, Albumin/Globulin Ratio 1.6 05/30/21 19:26: NT-Pro-B Natriuret Pep 14.7 05/30/21 19:26: ESR 23 H 05/30/21 19:26: C-Reactive Protein 14.3 H, Procalcitonin 0.085 Orders (Tests/Meds): ED MEDICATIONS Discontinued Medications Generic Name Dose Route Start Last Admin Trade Name Freq PRN Reason Stop Dose Admin Iopamidol 70 ml 05/30/21 20:14 05/30/21 20:15 Iopamidol-370 (76%);100ml Bottle IV 05/30/21 20:15 70 ml ONCE ONE Administration Sodium Chloride 50 ml 05/30/21 20:14 05/30/21 20:15 0.9 % Sodium Chloride 50 Ml Vial IV 05/30/21 20:15 50 ml ONCE ONE Administration Sodium Chloride 10 ml 05/30/21 20:14 05/30/21 20:15 Sodium Chloride 0.9% 10ml Syr (Rad Only) IV 05/30/21 20:15 10 ml ONCE ONE Administration ORDERS Category Date Time Status Troponin I Q3H Lab 05/30/21 22:15 Ordered Troponin I Q3H Lab 05/31/21 01:15 Ordered - ECG Data Tracing #1 EKG interpreted by Marcus Jhaveri MD: Rhythm: sinus Rate: 97 Miles: normal Ectopy: none Conduction: nor
--- NOTE | 2021-05-30 19:10 | XR_ITS ---
PROCEDURE INFORMATION: Exam: XR Chest Exam date and time: 05/30/2021 7:20 PM Age: 30 years old Clinical indication: Shortness of breath; Additional info: SOA TECHNIQUE: Imaging protocol: XR of the chest. Views: 2 views. COMPARISON: ABDPELW CT abdomen pelvis w con 09/06/2018 1:39 PM FINDINGS: Lungs: The known right upper lobe ground-glass opacities are difficult to identify on this chest radiograph. Pleural spaces: Unremarkable. No pleural effusion. No pneumothorax. Heart/Mediastinum: Unremarkable. No cardiomegaly. Bones/joints: Unremarkable. IMPRESSION: The known right upper lobe ground-glass opacities are difficult to identify on this chest radiograph.
--- NOTE | 2021-05-30 19:11 | ECG_ITS ---
APPROVED REPORT Exam: Resting ECG HR:97 bpm ECG Measurements Heart Rate 97 AXES FL 124 P 54 QRSd 97 QRS 97 QT 350 T 0 QTc 405 Conclusion SINUS RHYTHM BORDERLINE RIGHT AXIS DEVIATION [QRS AXIS > 90] NONSPECIFIC T-WAVE ABNORMALITY BORDERLINE ECG UNCONFIRMED REPORT Electronically signed by : Ilir Thacker MD 05/31/2021 14:14:13
[2021-05-30 19:38] LABS: Basophils # 0.2 K/mm3 (0-0.2); Basophils % 1.8 % (0.1-2.0); Eosinophils # 0.3 K/mm3 (0.0-0.4); Hematocrit 29.9 % (37.0-47.0); Lymphocytes # 3.1 K/mm3 (0.7-4.5); Lymphocytes % 31.4 % (10-50); Mean Corpuscular HGB Conc 33.5 g/dL (31.8-35.4); Mean Corpuscular Hemoglobin 24.1 pg (27.0-31.2); Mean Corpuscular Volume 71.9 fl (81-99); Mean Platelet Volume 7.7 fl (7.4-10.4); Monocytes # 0.5 K/mm3 (0.1-1.0); Monocytes % 5.5 % (1.7-9.3); Neutrophils # 5.8 K/mm3 (1.8-7.8); Neutrophils % 58.4 % (37.0-80.0); Platelet Count 222 K/mm3 (142-424); Red Blood Count 4.16 M/mm3 (4.20-5.40); Red Cell Distribution Width 15.5 % (11.5-17.5)
[2021-05-30 19:43] LABS: Alanine Aminotransferase 53 U/L (12-78); Albumin/Globulin Ratio 1.6 (1.1-1.8); Alkaline Phosphatase 91 U/L (38-126); Aspartate Amino Transferase 45 U/L (14-36); Bilirubin,Total 0.3 mg/dl (0.2-1.3); Blood Urea Nitrogen 8 mg/dl (7-17); Calcium 8.7 mg/dl (8.4-10.2); Carbon Dioxide 25 mmol/L (22.0-30.0); Chloride 105 mmol/L (98-107); Creatinine Clearance Estimated 185 mL/min (50-200); Estimated Glomerular Filt Rate 98 ml/min (>60); GFR (African American) 118 ML/MIN (>60); Globulin 2.5 g/dL (1.3-3.2); Glucose 177 mg/dl (74-100); Sodium 138 mmol/L (136-145); Total Protein,Serum 6.5 g/dl (6.3-8.2)
[2021-05-30 19:48] LABS: D-Dimer 0.67 ug/mL (0.0-0.5)
[2021-05-30 19:54] LABS: NT Pro Brain Natriuretic Pep. 14.7 pg/mL (0-125)
--- NOTE | 2021-05-30 19:58 | CT_ITS ---
PROCEDURE INFORMATION: Exam: CTA Chest With Contrast Exam date and time: 05/30/2021 8:05 PM Age: 30 years old Clinical indication: Sternal or substernal pain; Patient HX: Elevated d-dimer .67; Additional info: SOA, chest pain TECHNIQUE: Imaging protocol: Computed tomographic angiography of the chest with contrast. 3D rendering (Not supervised by radiologist): MIP and/or 3D reconstructed images were created by the technologist. Radiation optimization: All CT scans at this facility use at least one of these dose optimization techniques: automated exposure control; mA and/or kV adjustment per patient size (includes targeted exams where dose is matched to clinical indication); or iterative reconstruction. Contrast material: ISOVUE 370; Contrast volume: 70 ml; Contrast route: INTRAVENOUS (IV); COMPARISON: CR XR CHEST 2V 05/30/2021 7:20 PM FINDINGS: Pulmonary arteries: Evaluation of the pulmonary arteries is limited to the segmental arterial level due to poor bolus timing. Aorta: Unremarkable. No aortic aneurysm. No aortic dissection. Lungs: Right upper lobe ground-glass opacities could correlate with atypical pneumonia in the appropriate clinical setting. Pleural spaces: Unremarkable. No pneumothorax. No pleural effusion. Heart: Unremarkable. No cardiomegaly. No pericardial effusion. Lymph nodes: Unremarkable. No enlarged lymph nodes. Liver: Hepatic steatosis. Gallbladder and bile ducts: Gallbladder is absent. Kidneys and ureters: Low attenuation renal lesions measuring up to 2.4 cm in diameter are incompletely characterized, but are likely cysts. No followup imaging is warranted. Bones/joints: Unremarkable. No acute fracture. Soft tissues: Unremarkable. IMPRESSION: 1. Evaluation of the pulmonary arteries is limited to the segmental arterial level due to poor bolus timing. Within the limitations of the study, no large pulmonary emboli. 2. Right upper lobe ground-glass opacities could correlate with atypical pneumonia in the appropriate clinical setting. 3. Hepatic steatosis. COMMENTS: Consistent with the [employer]'s Incidental Findings Committee white paper (J Am Chriss Radiol 2018): Any incidental renal lesion less than 1 cm or classified as too small to characterize, or any incidental cystic renal lesion characterized as simple-appearing, is likely benign. No follow-up imaging is recommended for these lesions per consensus recommendations based on imaging criteria.
[2021-05-30 20:01] LABS: Troponin I < 0.01 ng/ml (0.00-0.034)
[2021-05-30 20:16] LABS: C-Reactive Protein 14.3 mg/L (0-4)
[2021-05-30 20:28] LABS: Erythrocyte Sedimentation Rate 23 mm/hr (0-20)
[2021-05-30 20:30] LABS: Procalcitonin 0.085 ng/mL (0.0-2.0)
[2021-05-30 21:08] VITALS: BP 113/76; PULSE 85; RESP 19; TEMP 36.7; O2SAT 98
== END 2021-05-30 21:11 | disposition home or self-care (01) ==
PROVIDERS: Emergency Provider Emergency Medicine; PCP Emergency Medicine
DX: S83.92XA Sprain of unspecified site of left knee, initial encounter (principal); W01.0XXA Fall on same level from slipping, tripping and stumbling without subsequent striking against object, initial encounter; R06.02 Shortness of breath; R07.89 Other chest pain; F41.8 Other specified anxiety disorders; F17.210 Nicotine dependence, cigarettes, uncomplicated; Z88.0 Allergy status to penicillin; Z88.5 Allergy status to narcotic agent
CPT/HCPCS: 71046; 71275; 73562; 80053; 83880; 84145; 84484; 85025; 85378; 85651; 86140; 93005; 99284; Q9967

== ENCOUNTER 2021-07-12 16:17 | Emergency (ER) | payer OTHER, SELFPAY ==
[2021-07-12 16:19] VITALS: BP 131/87; PULSE 88; RESP 16; TEMP 37.3; O2SAT 100; BMI 37.9
--- NOTE | 2021-07-12 16:23 | PC.NURSE ---
ice pack to R wrist
--- NOTE | 2021-07-12 16:33 | XR_ITS ---
PROCEDURE INFORMATION: Exam: XR Right Wrist Exam date and time: 07/12/2021 5:00 PM Age: 30 years old Clinical indication: Injury or trauma; Fall; Blunt trauma (contusions or hematomas); Wrist; Right; Injury date: 07/12/2021 TECHNIQUE: Imaging protocol: XR Right wrist. Views: 3 or more views. COMPARISON: CR WRISTCMRT XR wrist RT min 3V 07/28/2017 11:27 PM FINDINGS: Bones/joints: Acute distal radial fracture. A transverse fracture line extends through the distal metaphysis, and there is a longitudinal fracture line extending distally through the articular cortex at the wrist joint, abutting the articulation of the radius and lunate bone, best seen on oblique series 3. There is approximately 2 mm distraction of the major distal fracture fragments seen on lateral series 4. The fracture otherwise appears nondisplaced, with no significant angulation. Ulna and carpal bones appear intact with normal alignment at the wrist joint. No significant arthritic deformities. There are no lytic skeletal lesions seen. Soft tissues: Soft tissue swelling at the wrist.No radiopaque foreign bodies. No pathologic soft tissue calcification. IMPRESSION: Acute intra-articular distal radial fracture, as above.
--- NOTE | 2021-07-12 16:33 | XR_ITS ---
PROCEDURE INFORMATION: Exam: XR Right Forearm Exam date and time: 07/12/2021 5:03 PM Age: 30 years old Clinical indication: Injury or trauma; Fall; Blunt trauma (contusions or hematomas); Arm, lower; Right; Injury date: 07/12/2021 TECHNIQUE: Imaging protocol: XR Right forearm. Views: 2 views. COMPARISON: CR XR WRIST RT MIN 3V 07/12/2021 5:00 PM FINDINGS: Bones/joints: Distal radial fracture, extending transversely across the metaphysis with additional longitudinal fracture line suggested through the articular cortex, please see the wrist x-ray report. There is a questionable small radiolucency through the tip of the olecranon process of the ulna which may be benign summation shadow rather than a tiny nondisplaced fracture. No other fracture or dislocation is seen at the elbow joint. There is bulging of the posterior fat pad suggesting an elbow effusion. There are no lytic skeletal lesions seen. Soft tissues: Soft tissue swelling.No radiopaque foreign bodies seen. IMPRESSION: 1. Intra-articular distal radial fracture. 2. Questionable tiny fracture of the olecranon process of the ulna versus summation artifact. Elbow effusion. 3. No dislocation.
--- NOTE | 2021-07-12 17:02 | PC.NURSE ---
pt reports she is okay to take motrin even though she is allergic to tordal.
--- NOTE | 2021-07-12 17:03 | PC.NURSE ---
ANILA MCDERMOTT at
--- NOTE | 2021-07-12 17:03 | HMH.EDGENADL ---
ED Disposition Clinical Impression: Fracture of right distal radius Qualifiers: Encounter type: initial encounter Fracture type: closed Fracture morphology: other intra-articular Qualified Code(s): S52.571A - Other intraarticular fracture of lower end of right radius, initial encounter for closed fracture Disposition: Home, Self-Care Condition on Discharge: Good Instructions: DI for Forearm Fracture, DI for Distal Radius Fracture Additional Instructions: You have been evaluated for right wrist injury, diagnosed with a intra-articular fracture of the right distal radius. It is very important that you follow-up with orthopedics, call Dr. Baker's office first thing in the morning for an appointment. Tylenol and ibuprofen for pain. Zofran for nausea. Return to the emergency department for any new or worsening symptoms, numbness or tingling in your fingers, uncontrolled pain. Prescriptions: Ibuprofen [Ibuprofen 600mg Tablet] 600 mg PO Q8 PRN #30 tab PRN Reason: Mild Pain Transmission Status: Pending to [facility] ondansetron HCL [Ondansetron 4mg tab*] 4 mg PO TIDP PRN #12 tab PRN Reason: Nausea Transmission Status: Pending to [facility] Referrals: Dylon Gray MD [Primary Care Provider] - Kobi Baker MD [Staff Physician] - Time of Disposition: 18:11 - Critical Care Critical Care Time: No Attestation: On 07/12/21, the high probability of a clinically significant, sudden or life threatening deterioration of the following system(s) required my full and direct attention, intervention and personal management. The time I documented below is in addition to time spent performing reported procedures but includes the following listed in this critical care notation. Medical Decision Making - Medical Records Medical records reviewed: Yes: I reviewed the patient's medical records. - Kailash Inquiry Pt receiving controlled substance: No Vital Signs: 07/12/21 16:19 Temperature 99.2 F Temperature Source Oral Pulse Rate [Left Radial] 88 Respiratory Rate 16 Blood Pressure [Right Arm] 131/87 Blood Pressure Mean [Right Arm] 101 Blood Pressure Source [Right Arm] Automatic Cuff Blood Pressure Position [Right Arm] Sitting 02 Sat by Pulse Oximetry 100 Oxygen Delivery Method Room Air Orders (Tests/Meds): ED MEDICATIONS Discontinued Medications Generic Name Dose Route Start Last Admin Trade Name Freq PRN Reason Stop Dose Admin Acetaminophen 1,000 mg 07/12/21 16:58 07/12/21 17:01 Acetaminophen 500mg Tab PO 07/12/21 16:59 1,000 mg ONCE ONE Administration Ibuprofen 600 mg 07/12/21 16:58 07/12/21 17:02 Ibuprofen 600 Mg Tablet PO 07/12/21 16:59 600 mg ONCE ONE Administration Lidocaine HCl 5 ml 07/12/21 17:15 07/12/21 17:17 Lidocaine 1% 10ml Mdv SQ 07/12/21 17:16 5 ml ONCE ONE Administration ORDERS Category Date Time Status Troponin I Q3H Lab 07/12/21 19:30 Ordered Troponin I Q3H Lab 07/12/21 22:30 Ordered ECG Request by /Nse Stat Y 07/12/21 16:19 Stop Req Medical Decision Narrative: Summary this is a previously healthy 30-year-old female, [id number], presenting to the emergency department with injury to the right wrist. Patient clinically stable on arrival. Vital signs within normal limits. Will obtain x-rays of the right wrist, ulna, radius. Given Tylenol and Motrin for pain. She takes Suboxone. Does not want narcotic pain medication X-rays show an intra-articular distal radius fracture. Hematoma block performed. Patient had significant improvement in her level of pain. Patient placed into a sugar-tong splint. She will need urgent Ortho follow-up. Given referral to Dr. Baker. Counseled on return precautions. Stable for discharge General Adult HPI - General Chief complaint: Extremity Injury, Upper Stated complaint: AO 07/12 @1400 fell injured R Wrist Time Seen by Provider: 07/12/21 16:23 Mode of Arrival
--- NOTE | 2021-07-12 17:09 | PC.NURSE ---
pt to xray
[2021-07-12 18:20] VITALS: BP 112/74; PULSE 78; RESP 16; TEMP 36.6; O2SAT 98
== END 2021-07-12 18:21 | disposition home or self-care (01) ==
PROVIDERS: Emergency Provider Emergency Medicine; PCP Emergency Medicine
DX: S52.571A Other intraarticular fracture of lower end of right radius, initial encounter for closed fracture (principal); W19.XXXA Unspecified fall, initial encounter; F11.29 Opioid dependence with unspecified opioid-induced disorder; Z88.5 Allergy status to narcotic agent; Z88.0 Allergy status to penicillin; Z79.899 Other long term (current) drug therapy; F41.9 Anxiety disorder, unspecified; F32.A Depression, unspecified; G43.909 Migraine, unspecified, not intractable, without status migrainosus; Z72.0 Tobacco use
CPT/HCPCS: 29105; 73090; 73110

== ENCOUNTER 2021-09-26 13:47 | Emergency (ER) | payer OTHER, SELFPAY ==
--- NOTE | 2021-09-26 13:44 | ECG_ITS ---
APPROVED REPORT Exam: Resting ECG HR:89 bpm ECG Measurements Heart Rate 89 AXES FL 138 P 58 QRSd 91 QRS 73 QT 344 T 41 QTc 391 Conclusion SINUS RHYTHM NONSPECIFIC T-WAVE ABNORMALITY BORDERLINE ECG UNCONFIRMED REPORT Electronically signed by : Ilir Thacker MD 09/28/2021 21:30:16
--- NOTE | 2021-09-26 13:48 | XR_ITS ---
PROCEDURE INFORMATION: Exam: XR Chest Exam date and time: 09/26/2021 1:47 PM Age: 31 years old Clinical indication: Sternal or substernal pain; Patient HX: Chest pain and lethargic for 3 days. Patient does vape she stated. TECHNIQUE: Imaging protocol: Radiologic exam of the chest. Views: 2 views. COMPARISON: CR XR CHEST 2V 05/30/2021 7:20 PM FINDINGS: Lungs: Unremarkable. No consolidation. Pleural spaces: Unremarkable. No pleural effusion. No pneumothorax. Heart/Mediastinum: Unremarkable. No cardiomegaly. Bones/joints: Unremarkable. IMPRESSION: No acute findings.
[2021-09-26 13:52] VITALS: BP 130/68; PULSE 105; RESP 22; TEMP 36.8; O2SAT 99; BMI 36.0
[2021-09-26 14:03] LABS: Basophils # 0.1 K/mm3 (0-0.2); Basophils % 0.5 % (0.1-2.0); Eosinophils # 0.3 K/mm3 (0.0-0.4); Hematocrit 36.1 % (37.0-47.0); Hemoglobin 11.2 g/dL (12.2-16.2); Lymphocytes % 33.6 % (10-50); Mean Corpuscular Hemoglobin 23.3 pg (27.0-31.2); Mean Corpuscular Volume 75.3 fl (81-99); Mean Platelet Volume 8.2 fl (7.4-10.4); Monocytes # 0.5 K/mm3 (0.1-1.0); Monocytes % 5.5 % (1.7-9.3); Neutrophils # 5.1 K/mm3 (1.8-7.8); Neutrophils % 57.4 % (37.0-80.0); Platelet Count 219 K/mm3 (142-424); Red Cell Distribution Width 15.5 % (11.5-17.5); White Blood Count 8.9 K/mm3 (4.8-10.8)
[2021-09-26 14:07] LABS: Anion Gap 12.5 mEq/L (5-15); Blood Urea Nitrogen 9 mg/dl (7-17); Calcium 9.2 mg/dl (8.4-10.2); Carbon Dioxide 26 mmol/L (22.0-30.0); Chloride 102 mmol/L (98-107); Estimated Glomerular Filt Rate 116 ml/min (>60); GFR (African American) 140 ML/MIN (>60); Glucose 304 mg/dl (74-100); Potassium 4.5 mmoL/L (3.5-5.1); Sodium 136 mmol/L (136-145)
--- NOTE | 2021-09-26 14:08 | HMH.EDGENADL ---
ED Disposition Clinical Impression: Musculoskeletal chest pain Disposition: Home, Self-Care Condition on Discharge: Good Additional Instructions: Take Tylenol 1000 mg and ibuprofen 400 mg every 6 hours for the next 3 days with food and water for symptomatic pain relief. Stretch, ice, minimize stressful physical work to promote healing. Follow-up with primary care provider regarding this visit to the emergency department for scheduling physical therapy if needed. Also follow-up with primary care provider regarding glucose and probable underlying diabetes. Referrals: Provider,Referral, [Referring] - - Critical Care Critical Care Time: No Attestation: On 09/26/21, the high probability of a clinically significant, sudden or life threatening deterioration of the following system(s) required my full and direct attention, intervention and personal management. The time I documented below is in addition to time spent performing reported procedures but includes the following listed in this critical care notation. Medical Decision Making - Kailash Inquiry Pt receiving controlled substance: No Vital Signs: 09/26/21 13:52 Temperature 98.2 F Temperature Source Oral Pulse Rate [Left Radial] 105 H Respiratory Rate 22 Blood Pressure [Right Arm] 130/68 Blood Pressure Mean [Right Arm] 88 02 Sat by Pulse Oximetry 99 Oxygen Delivery Method Room Air - Lab Data Lab Results 09/26/21 13:53: WBC 8.9, RBC 4.80, Hgb 11.2 L, Hct 36.1 L, MCV 75.3 L, MCH 23.3 L, MCHC 31.0 L, RDW 15.5, Plt Count 219, MPV 8.2, Neut % (Auto) 57.4, Lymph % (Auto) 33.6, [place] % (Auto) 5.5, Eos % (Auto) 3.0, Baso % (Auto) 0.5, Neut # (Auto) 5.1, Lymph # (Auto) 3.0, [place] # (Auto) 0.5, Eos # (Auto) 0.3, Baso # (Auto) 0.1 09/26/21 13:53: Sodium 136, Potassium 4.5, Chloride 102, Carbon Dioxide 26, Anion Gap 12.5, BUN 9, Creatinine 0.60, Estimated GFR 116, Est GFR ( Amer) 140, Glucose 304 H, Calcium 9.2, Troponin I < 0.01 09/26/21 13:53: D-Dimer 0.73 H Result diagrams: 09/26/21 13:53 09/26/21 13:53 Orders (Tests/Meds): ED MEDICATIONS Discontinued Medications Generic Name Dose Route Start Last Admin Trade Name Kate PRN Reason Stop Dose Admin Iopamidol 70 ml 09/26/21 15:57 09/26/21 15:58 Iopamidol-370 (76%);100ml Bottle IV 09/26/21 15:58 70 ml ONCE ONE Administration Sodium Chloride 50 ml 09/26/21 15:57 09/26/21 15:58 0.9 % Sodium Chloride 50 Ml Vial IV 09/26/21 15:58 50 ml ONCE ONE Administration Sodium Chloride 10 ml 09/26/21 15:57 09/26/21 15:58 Sodium Chloride 0.9% 10ml Syr (Rad Only) IV 09/26/21 15:58 10 ml ONCE ONE Administration ORDERS Category Date Time Status Hemoglobin A1C Stat Lab 09/26/21 16:34 Ordered Medical Decision Narrative: This is an otherwise healthy 31-year-old female who is presenting with left chest wall pain. On arrival, patient hemodynamically stable, alert, oriented, moving all extremities spontaneously, pupils equal and reactive to light, GCS 15. Differential includes pneumothorax, PE, pneumonia, bronchitis, anxiety, ACS, MN, among others. Work-up significant for Nonactionable CBC. Chemistry with glucose 300 concerning for undiagnosed diabetes. D-dimer elevated 0.73. Negative troponin. CTA chest without concern for acute cardiopulmonary process, dissection, PE, or other intrathoracic process. EKG sinus rhythm [address] or T wave changes concerning for acute ischemia. No evidence of right heart strain. Given patient's negative work-up, physical exam, this most likely represents acute MSK strain. On further evaluation, patient states that it is made worse by moving her left upper extremity, she thinks that she may have strained it and 2 days prior to arrival, she was working really hard in the yard and after that it had been flared up pretty significantly from baseline. It was recommended that patient rest, stretch, conservative therapy. Tylenol and ibuprofen rec
[2021-09-26 14:20] LABS: Troponin I < 0.01 ng/ml (0.00-0.034)
[2021-09-26 14:27] LABS: D-Dimer 0.73 ug/mL (0.0-0.5)
--- NOTE | 2021-09-26 15:34 | CT_ITS ---
PROCEDURE INFORMATION: Exam: CTA Chest With Contrast Exam date and time: 09/26/2021 3:55 PM Age: 31 years old Clinical indication: Shortness of breath; Additional info: CHERIE Phillips TECHNIQUE: Imaging protocol: Computed tomographic angiography of the chest with contrast. 3D rendering (Not supervised by radiologist): MIP and/or 3D reconstructed images were created by the technologist. Radiation optimization: All CT scans at this facility use at least one of these dose optimization techniques: automated exposure control; mA and/or kV adjustment per patient size (includes targeted exams where dose is matched to clinical indication); or iterative reconstruction. Contrast material: ISOVUE; Contrast volume: 70 ml; Contrast route: INTRAVENOUS (IV); COMPARISON: CT ANGIO CHEST PE PROTOCOL 05/30/2021 8:05 PM FINDINGS: Pulmonary arteries: No pulmonary embolus. No dissection or aneurysm in the chest. Aorta: Unremarkable. No aortic aneurysm. No aortic dissection. Lungs: The lungs are clear. Pleural spaces: Unremarkable. No pneumothorax. No pleural effusion. Heart: No significant coronary artery calcifications. Lymph nodes: Unremarkable. No enlarged lymph nodes. Liver: Fatty liver. Bones/joints: Unremarkable. No acute fracture. Soft tissues: Unremarkable. IMPRESSION: 1. No pulmonary embolus. No dissection or aneurysm in the chest. 2. The lungs are clear. 3. Fatty liver.
--- NOTE | 2021-09-26 16:07 | PC.NURSE ---
Pt returned from radiology via wheelchair.
[2021-09-26 17:17] LABS: Hemoglobin A1C 8.8 % (4.0-6.0)
[2021-09-26 17:22] VITALS: BP 131/66; PULSE 94; RESP 20; TEMP 36.8; O2SAT 99
== END 2021-09-26 17:25 | disposition home or self-care (01) ==
PROVIDERS: Emergency Provider Emergency Medicine; PCP Emergency Medicine
DX: R07.89 Other chest pain (principal); F17.290 Nicotine dependence, other tobacco product, uncomplicated
CPT/HCPCS: 71046; 71275; 80048; 83036; 84484; 85025; 85378; 93005; 99285; Q9967

== ENCOUNTER → 2022-01-26 16:10 | Outpatient (CLI) | payer OTHER, SELFPAY ==
[2022-01-26 15:09] LABS: Amphetamine/Metha Screen,Urine Negative ng/ml (<1000); Barbiturates Screen,Urine Negative ng/ml (<200)
[2022-01-26 15:10] LABS: Benzodiazepines Screen,Urine Negative ng/ml (<200)
[2022-01-26 15:11] LABS: Cannabinoid Screen,Urine Negative ng/ml (<50); Cocaine Screen,Urine Negative ng/ml (<300)
[2022-01-26 15:12] LABS: Methadone Screen,Urine Negative ng/ml (<300); Phencyclidine Screen,Urine Negative ng/ml (<25)
[2022-01-26 15:13] LABS: Opiate Screen,Urine Negative ng/ml (<300)
== END ==
PROVIDERS: PCP Emergency Medicine; Visit Provider Emergency Medicine
DX: F41.9 Anxiety disorder, unspecified (principal)
CPT/HCPCS: 80305

== ENCOUNTER 2023-03-14 17:36 | Emergency (ER) | payer OTHER, SELFPAY ==
--- NOTE | 2023-03-14 17:47 | PC.NURSE ---
dr bashir at bedside
[2023-03-14 17:48] VITALS: BP 125/86; PULSE 107; RESP 15; TEMP 37.8; O2SAT 99; BMI 36.7
--- NOTE | 2023-03-14 17:52 | CT_ITS ---
PROCEDURE INFORMATION: Exam: CT Maxillofacial With Contrast Exam date and time: 03/14/2023 7:11 PM Age: 32 years old Clinical indication: Mass, lump, or swelling; Other: L nostril; Additional info: Abscess in L nostril, headache, eye pressure TECHNIQUE: Imaging protocol: Computed tomography of the face with contrast. Radiation optimization: All CT scans at this facility use at least one of these dose optimization techniques: automated exposure control; mA and/or kV adjustment per patient size (includes targeted exams where dose is matched to clinical indication); or iterative reconstruction. Contrast material: ISOVUE; Contrast volume: 100 ml; Contrast route: IV; COMPARISON: No relevant prior studies available. FINDINGS: Orbital cavities: Orbits are normal. Globes are unremarkable. Bones/joints: No acute fracture. Paranasal sinuses: Normal. No air-fluid levels. Soft tissues: Soft tissue edema and phlegmon lateral to the left nostril, demonstrating heterogeneous enhancement. No definite drainable collection or abscess identified. IMPRESSION: Soft tissue edema and phlegmon lateral to the left nostril, demonstrating heterogeneous enhancement. No definite drainable collection or abscess identified.
--- NOTE | 2023-03-14 17:52 | CT_ITS ---
PROCEDURE INFORMATION: Exam: CTA Head With Contrast, Venography Exam date and time: 03/14/2023 7:17 PM Age: 32 years old Clinical indication: Other: Abscess in L nostril; Additional info: Abscess in L nostril, headache, eye pressure TECHNIQUE: Imaging protocol: Computed tomography angiography of the head with contrast. Exam focused on the veins. 3D rendering (Not supervised by radiologist): MIP and/or 3D reconstructed images were created by the technologist. Radiation optimization: All CT scans at this facility use at least one of these dose optimization techniques: automated exposure control; mA and/or kV adjustment per patient size (includes targeted exams where dose is matched to clinical indication); or iterative reconstruction. Contrast material: ISOVUE; Contrast volume: 100 ml; Contrast route: INTRAVENOUS (IV); COMPARISON: CT FACIAL BONES W CON 03/14/2023 7:11 PM FINDINGS: Superior sagittal sinus: Patent. Straight sinus: Patent. Transverse sinuses: Right patent. Left hypoplastic. Sigmoid sinuses: Patent. Internal jugular veins: Limited visualized internal jugular veins are patent. Brain: No definite mass, mass effect, or midline shift. Cerebral ventricles: No ventriculomegaly. Soft tissues: Unremarkable. IMPRESSION: No definite venous thrombosis. Left transverse sinus hypoplastic limiting evaluation for thrombus.
--- NOTE | 2023-03-14 17:53 | ED_ITS ---
Discharge Plan Disposition Patient Disposition: Home, Self-Care Condition: Good Prescriptions Prescriptions: No Action bupropion HCl 300 mg tablet extended release 24 hr 300 mg PO DAILY Patient Comments: TAKE 1 TABLET BY MOUTH EVERY MORNING. Referrals Follow up/Referrals: Kurt Sellers MD [Physician] - See instructions Fanny Downing APRN [Primary Care Provider] - See instructions Pérez Rossi III, MD [Staff Physician] - See instructions Activity Restrictions/Add. Instructions Additional Instructions/Restrictions: You were evaluated in the emergency department today. Take the full course of Bactrim that was prescribed to you. Follow-up with ENT. Call their office in the morning to make an appointment. Clinical Impressions Clinical Impression: Phlegmon, Cellulitis of face Instructions Patient Instructions: Cellulitis Discharge ED Provider: Mago Melendez General Adult HPI General Chief complaint: Recheck/Abnormal Lab/Rx Stated complaint: recommended IV antib. for her nose Time Seen by Provider: 03/14/23 17:43 Mode of Arrival: Ambulatory Source of Information: Patient Limitations: No Limitations Description of Symptoms (Recalled from ER Triage Doc. by RN): pt presents to ED from pcp office. pt reports she has had swollen spot on her nose ongoing for 3 days. pt went to see pcp and was told to come to ED for IV abx. pt reports she was given bactrum and ibu and have taken those approx 2 hours ago History of Present Illness HPI narrative: This patient is a 32-year-old female currently on Suboxone presents emergency department for evaluation with concern for abscess inside her left nose as well as fever. Patient reports that she was evaluated by her primary care provider earlier today and told that she had an abscess in her left nostril and that she should probably be seen in the ED for CT scan and IV antibiotics. She notes that she initially noticed a pimple on her left side of her nose that got worse and worse and she did not seek evaluation until today. She is having subjective fevers and chills as well as pressure behind her left eye, but no visual changes, severe headache, numbness, tingling, weakness, chest pain, shortness of breath, or other concerns. Her primary care doctor did prescribe her Bactrim but they did advise that she should probably receive IV antibiotics in the ED. No other concerns noted at this time. Related Data Home Medications Medication Instructions Recorded Confirmed bupropion HCl 300 mg 24 hr tablet, 300 mg PO DAILY 03/14/23 03/14/23 extended release Allergies Allergy/AdvReac Type Severity Reaction Status Date / Time codeine [CODEINE] Allergy Mild MILD RASH Verified 03/14/23 13:52 hydrocodone [HYDROCODONE] Allergy Mild MILD RASH Verified 03/14/23 13:52 ketorolac [From TORADOL] Allergy Mild Verified 03/14/23 13:52 tramadol [TRAMADOL] Allergy Mild Verified 03/14/23 13:52 morphine [MORPHINE] Allergy Unknown MIGRAINE Verified 03/14/23 13:52 Penicillins [PENICILLINS] Allergy Unknown Verified 03/14/23 13:52 PFSH [facility] Disclaimer: The information contained in this section may have been updated after the patient was seen, as this information can be updated by other users. Medical History Cellulitis of face Diabetes Social History Smoking Status: Current every day smoker tobacco type: e-cigarettes alcohol intake: never substance use type: former substance user, marijuana, heroin, tranquilizers and methamphetamine current occupational status: other Travel in the last 8 weeks: None housing: house current occupational exposures/hazards: No caffeine: No ROS Obtained: Yes All systems reviewed & no additional complaints except as d ocumented Physical Exam General General appearance: alert and in no apparent distress Head Head exam: atraumatic and normocephalic Eye Eye exam: Present normal appearance, PERRL and EOMI ENT ENT exam: Present normal oropharynx, mucous membranes moist and normal external ear exam Expanded ENT Exam Nose/Mouth Image: 2 1. Erythema and swelling to the left nostril with an area of purulence visualized inside of the left nare Comment: No significant facial swelling, drooling, or trismus Neck Neck exam: Present normal inspection, full ROM and trachea midline; Absent tenderness Chest Chest inspection: Present normal inspection and symmetric chest wall rise; Absent tenderness Respiratory Respiratory exam: Present normal lung sounds bilaterally; Absent respiratory distress, wheezes, stridor or accessory muscle use Cardiovascular Cardiovascular exam: Present regular rate and normal rhythm Abdominal Exam Abdominal exam: Present soft; Absent distention, tenderness or guarding Extremities Exam Extremities exam: Present normal inspection, full ROM and normal capillary refill; Absent tenderness or edema Back Exam Back exam: Present normal inspection and full ROM; Absent tenderness Neurological Exam Neurological exam: Present alert, oriented X3, CN II-XII intact and normal gait; Absent motor sensory deficit Psychiatric Psychiatric exam: Present normal affect and normal mood Skin Skin exam: Present warm and dry Medical Decision Making Medical Records Medical records reviewed: Yes I reviewed the patient's medical records. Kailash Inquiry Pt receiving controlled substance: No Vital Signs: 03/14/23 17:48 03/14/23 19:27 03/14/23 19:29 Temperature 100.1 F H Temperature Source Oral Pulse Rate 82 85 Pulse Rate [Left Radial] 107 H Respiratory Rate 15 20 18 Blood Pressure 117/71 114/79 Blood Pressure [Right Arm] 125/86 Blood Pressure Mean 86 85 Blood Pressure Mean [Right Arm] 99 Blood Pressure Source Blood Pressure Position 02 Sat by Pulse Oximetry 99 98 100 Oxygen Delivery Method Room Air Room Air Room Air 03/14/23 21:15 Temperature 97.4 F L Temperature Source Oral Pulse Rate 70 Pulse Rate [Left Radial] Respiratory Rate 16 Blood Pressure 135/81 Blood Pressure [Right Arm] Blood Pressure Mean Blood Pressure Mean [Right Arm] Blood Pressure Source Automatic Cuff Blood Pressure Position Sitting 02 Sat by Pulse Oximetry Oxygen Delivery Method Room Air Lab Data Lab results reviewed: Yes I reviewed the patient's lab results. Lab Results 03/14/23 18:15: WBC 11.3 H, RBC 4.60, Hgb 11.7 L, Hct 34.9 L, MCV 75.8 L, MCH 25.5 L, MCHC 33.6, RDW 14.0, Plt Count 243, MPV 7.4, Neut % (Auto) 62.0, Lymph % (Auto) 29.5, [place] % (Auto) 5.9, Eos % (Auto) 1.9, Baso % (Auto) 0.8, Neut # (Auto) 7.0, Lymph # (Auto) 3.3, [place] # (Auto) 0.7, Eos # (Auto) 0.2, Baso # (Auto) 0.1, Sodium 139, Potassium 4.0, Chloride 106, Carbon Dioxide 25, Anion Gap 12.0, BUN 6 L, Creatinine 0.70, Estimated Creat Clear 175, Estimated GFR 96, Est GFR ( Amer) 117, Glucose 92, Lactate 1.7, Calcium 9.1, Total Bilirubin 0.3, AST 30, ALT 25, Alkaline Phosphatase 81, Total Protein 7.2, Albumin 4.2, Globulin 3.0, Albumin/Globulin Ratio 1.4, Procalcitonin 0.040, Serum HCG, Qual Negative 03/14/23 18:15 03/14/23 18:15 Orders (Tests/Meds): ED MEDICATIONS Discontinued Medications Generic Name Dose Route Start Last Admin Trade Name Kate PRN Reason Stop Dose Admin Acetaminophen 1,000 mg 03/14/23 18:07 03/14/23 18:30 Acetaminophen 500mg Tab PO 03/14/23 18:08 1,000 mg ONCE ONE Administration Lactated Ringer's 1,640 mls @ 820 mls/hr 03/14/23 18:07 03/14/23 18:30 Lactated Ringer's 1000 Ml Bag 30 ml/kg infuse over 2 hr (1640 ml) 03/14/23 20:06 820 mls/hr IV Administration .Q2H ONE Ceftriaxone Sodium 2 gm/ 100 mls @ 200 mls/hr 03/14/23 20:12 03/14/23 20:17 Sodium Chloride IV 03/14/23 20:41 200 mls/hr ONCE ONE Administration Vancomycin HCl 2,250 mg/ 250 mls @ 125 mls/hr 03/14/23 20:15 03/14/23 20:20 Sodium Chloride IV 03/14/23 22:14 125 mls/hr ONCE ONE Administration Ibuprofen 800 mg 03/14/23 18:07 03/14/23 18:30 Ibuprofen 400 Mg Tablet PO 03/14/23 18:08 800 mg ONCE ONE Administration Iopamidol 200 ml 03/14/23 19:22 03/14/23 19:23 Iopamidol-370 (76%);100ml Bottle IV 03/14/23 19:23 200 ml ONCE ONE Administration Miscellaneous 1 each 03/14/23 20:15 03/14/23 20:14 Vancomycin Consult Request NOTAPPLIC 04/13/23 20:14 1 each CONSULT PHARMACY CHARLENE Administration Sodium Chloride 10 ml 03/14/23 19:22 03/14/23 19:23 Sodium Chloride 0.9% 10ml Syr (Rad Only) IV 03/14/23 19:23 10 ml ONCE ONE Administration Sodium Chloride 50 ml 03/14/23 19:22 03/14/23 19:23 0.9 % Sodium Chloride 50 Ml Vial IV 03/14/23 19:23 50 ml ONCE ONE Administration ORDERS Category Date Time Status CT Venogram head Stat Cat Scan 03/14/23 17:[address] facial bones w con Stat Cat Scan 03/14/23 17:52 Completed Complete Blood Count Auto Diff Stat Lab 03/14/23 18:15 Completed Comprehensive Metabolic Panel Stat Lab 03/14/23 18:15 Completed HCG Qualitative, Serum Stat Lab 03/14/23 18:15 Completed Lactic Acid Stat Lab 03/14/23 18:15 Completed Procalcitonin Stat Lab 03/14/23 18:15 Completed Blood Culture Stat Micro 03/14/23 18:53 Received Medical Decision Narrative: In summary, this patient is a 32-year-old female presenting to the Emergency Department for evaluation of left nostril swelling and abscess inside her left nose and pressure behind her left eye as well as fevers and chills. Differential diagnoses considered include but are not limited to sinusitis, cellulitis, abscess, cavernous sinus thrombosis. Ruling out the most morbid conditions drove assessment. On exam, the patient is nontoxic-appearing. She has a temperature of 100.1 ?F and is mildly tachycardic with a heart rate in the low 90s. She has localized swelling and erythema to her left nostril with an area of purulence visualized inside the left nare. Extraocular movements are intact, pupils are equal, and she has no visual disturbance. No meningismus on exam. Workup included CBC, CMP, procalcitonin, lactic acid, CT scan of the face with IV contrast, and CT venogram. I independently interpreted CT scan prior to the radiologist read and noted no obvious deep space infection. Radiology noted that there is phlegmon without drainable abscess. No concern for cavernous sinus thrombosis based on exam or their read. Please see their read for final interpretation. Labs were obtained that demonstrated mild leukocytosis of 11.3 without other acute concerns. Patient was given a bolus of IV fluids as well as IV vancomycin and Rocephin. At this time given reassuring neurologic exam, reassuring vitals, and reassuring labs, feel that she is appropriate for discharge with instructions for close follow-up with ENT. She is given prescription for Bactrim by her primary care provider, which I instructed her to take. I gave her strict return precautions and she was discharged in stable condition after all questions were answered. Critical Care Critical Care Time Critical Care Time: No
[2023-03-14] MEDS: IBUPROFEN 400 MG TABLET 800 MG PO (18:30)
[2023-03-14] MEDS: LACTATED RINGERS 1000ML 1,640 ML 820 ML IV (18:30)
[2023-03-14] MEDS: ACETAMINOPHEN 500MG TAB 1000 MG PO (18:30)
[2023-03-14 18:33] LABS: Basophils # 0.1 K/mm3 (0-0.2); Basophils % 0.8 % (0.1-2.0); Eosinophils # 0.2 K/mm3 (0.0-0.4); Eosinophils % 1.9 % (0.1-12.0); Hematocrit 34.9 % (37.0-47.0); Hemoglobin 11.7 g/dL (12.2-16.2); Lymphocytes # 3.3 K/mm3 (0.7-4.5); Lymphocytes % 29.5 % (10-50); Mean Corpuscular HGB Conc 33.6 g/dL (31.8-35.4); Mean Corpuscular Hemoglobin 25.5 pg (27.0-31.2); Mean Corpuscular Volume 75.8 fl (81-99); Mean Platelet Volume 7.4 fl (7.4-10.4); Monocytes # 0.7 K/mm3 (0.1-1.0); Monocytes % 5.9 % (1.7-9.3); Platelet Count 243 K/mm3 (142-424); White Blood Count 11.3 K/mm3 (4.8-10.8)
[2023-03-14 18:41] LABS: HCG Qualitative, Serum Negative (Negative)
[2023-03-14 18:43] LABS: Alanine Aminotransferase 25 U/L (12-78); Albumin Level 4.2 g/dl (3.5-5.0); Albumin/Globulin Ratio 1.4 (1.1-1.8); Alkaline Phosphatase 81 U/L (38-126); Aspartate Amino Transferase 30 U/L (14-36); Bilirubin,Total 0.3 mg/dl (0.2-1.3); Blood Urea Nitrogen 6 mg/dl (7-17); Calcium 9.1 mg/dl (8.4-10.2); Carbon Dioxide 25 mmol/L (22.0-30.0); Chloride 106 mmol/L (98-107); Creatinine Clearance Estimated 175 mL/min (50-200); Estimated Glomerular Filt Rate 96 ml/min (>60); GFR (African American) 117 ML/MIN (>60); Glucose 92 mg/dl (74-100); Sodium 139 mmol/L (136-145); Total Protein,Serum 7.2 g/dl (6.3-8.2)
[2023-03-14 18:44] LABS: Lactic Acid 1.7 mmol/L (0.7-2.1)
--- NOTE | 2023-03-14 19:06 | PC.NURSE ---
patient to CT
[2023-03-14] MEDS: SODIUM CHLORIDE 0.9% 10ML SYR (RAD ONLY) 10 ML IV (19:23)
[2023-03-14] MEDS: 0.9 % SODIUM CHLORIDE 50 ML VIAL IV (19:23)
[2023-03-14] MEDS: IOPAMIDOL-370 (76%);100ML BOTTLE 200 ML IV (19:23)
[2023-03-14 19:27] VITALS: BP 117/71; PULSE 82; RESP 20; O2SAT 98
[2023-03-14 19:29] VITALS: BP 114/79; PULSE 85; RESP 18; O2SAT 100
[2023-03-14] MEDS: VANCOMYCIN CONSULT REQUEST 1 EACH NOTAPPLIC (20:14)
[2023-03-14] MEDS: CEFTRIAXONE SODIUM 2 GM in 0.9 % SODIUM CHLORIDE 100 ML IV (20:17)
[2023-03-14] MEDS: VANCOMYCIN HCL 2,250 MG in 0.9 % SODIUM CHLORIDE 250 ML 125 MG IV (20:20)
[2023-03-14 21:15] VITALS: BP 135/81; PULSE 70; RESP 16; TEMP 36.3; O2SAT 98
== END 2023-03-14 21:16 | disposition home or self-care (01) ==
PROVIDERS: Emergency Provider Emergency Medicine; PCP Nurse Practitioner
DX: L03.211 Cellulitis of face (principal); J34.0 Abscess, furuncle and carbuncle of nose; E11.9 Type 2 diabetes mellitus without complications; F17.290 Nicotine dependence, other tobacco product, uncomplicated; F11.21 Opioid dependence, in remission
CPT/HCPCS: 70487; 70496; 80053; 83605; 84145; 84703; 85025; 87040; 96361; 96365; 96368; 99285; J0696; J3370; Q9967

== ENCOUNTER 2023-11-08 20:40 | Outpatient (CLI) | payer OTHER, SELFPAY | END 2023-11-08 23:59 | disposition home or self-care (01) | LOC: LAB.DROPOF 20:41 | PROVIDERS: PCP Obstetrics & Gynecology; Visit Provider Obstetrics & Gynecology | DX: Z02.9 Encounter for administrative examinations, unspecified (principal) ==

== ENCOUNTER 2024-02-23 19:14 | Emergency (ER) | payer OTHER, SELFPAY ==
[2024-02-23 19:16] VITALS: BP 141/108; PULSE 103; RESP 20; TEMP 37.1; O2SAT 99; BMI 39.9
--- NOTE | 2024-02-23 19:38 | ED_ITS ---
Discharge Plan Disposition Patient Disposition: Home, Self-Care Prescriptions Prescriptions: New permethrin 5 % cream 1 applic topical Q14D Qty: 60 0RF Rx Instructions: apply to all areas of the body from the neck to the soles of the feet; leave on for 14 hours before removing by washing. May repeat if still symptomatic after 14 days. hydroxyzine pamoate [Vistaril] 25 mg capsule 25 mg PO Q8H PRN (Reason: itching) 7 Days Qty: 21 0RF No Action tizanidine 4 mg capsule 4 mg PO Q8H PRN (Reason: muscle spasticity) Qty: 30 0RF methylprednisolone 4 mg tablets,dose pack See Rx Instructions PO PER PKG DIR Qty: 21 0RF Rx Instructions: PO PER PKG DIR diclofenac sodium 75 mg tablet,delayed release (DR/EC) 75 mg PO BID Qty: 60 0RF Referrals Follow up/Referrals: Tala Lechuga MD [Referring] - See instructions Fanny Downing APRN [Primary Care Provider] - See instructions Activity Restrictions/Add. Instructions Additional Instructions/Restrictions: You have a nonspecific rash but given its location appearance and symptoms and the household contact with a similar presentation we will treat for possible mites/scabies. Please take your medications as prescribed and follow-up with dermatology in 2 weeks without any significant improvement. Clinical Impressions Clinical Impression: Rash Instructions Patient Instructions: DI for Skin Abscess Print Language Print Language: Nigerian Discharge ED Provider: Robe Valdez General Adult HPI General Chief complaint: Skin/Abscess/Foreign Body Stated complaint: itchy blistered spreading red rash ba Time Seen by Provider: 02/23/24 19:34 Mode of Arrival: Ambulatory Source of Information: Patient Limitations: No Limitations Description of Symptoms (Recalled from ER Triage Doc. by RN): Pt states complainyts of red rash on bilateral arms, stomach, and small spot on left foot that started 3 days ago and has progressivelty gotten worse. States itching and burning are noted to rash. symptoms worse at night. pt has tried a steroid cream at home and it has not improved. History of Present Illness HPI narrative: Previously healthy 33-year-old female presents today with a rash. She is also here with her mother with similar symptoms. States the rash is intensely pruritic is located in several areas including her arms her back her abdomen and her legs. Symptoms are significantly worse at night. She states she feels as if something is crawling on her. No other systemic signs or symptoms of illness from a historical standpoint including fevers feeling ill etc. Related Data Previous Rx's ?Medication ?Instructions ?Recorded tizanidine 4 mg capsule 4 mg PO Q8H PRN muscle spasticity 11/22/23 #30 caps diclofenac sodium 75 mg 75 mg PO BID #60 tabs 11/28/23 tablet,delayed release methylprednisolone 4 mg tablets in See Rx Instructions PO PER PKG DIR 11/28/23 a dose pack #21 tabs hydroxyzine pamoate 25 mg capsule 25 mg PO Q8H PRN itching 7 days 02/23/24 (Vistaril) #21 caps permethrin 5 % topical cream 1 applic topical Q14D 2 doses #60 02/23/24 grams Allergies Allergy/AdvReac Type Severity Reaction Status Date / Time codeine (CODEINE) Allergy Mild MILD RASH Verified 11/22/23 13:07 hydrocodone (HYDROCODONE) Allergy Mild MILD RASH Verified 11/22/23 13:07 ketorolac (From TORADOL) Allergy Mild Verified 11/22/23 13:07 tramadol (TRAMADOL) Allergy Mild Verified 11/22/23 13:07 morphine (MORPHINE) Allergy Unknown MIGRAINE Verified 11/22/23 13:07 Penicillins (PENICILLINS) Allergy Unknown Verified 11/22/23 13:07 [facility] Disclaimer: The information contained in this section may have been updated after the patient was seen, as this information can be updated by other users. Medical History Anxiety with depression Cellulitis of face Diabetes Surgical History Hx of cholecystectomy Social History Smoking Status: Never smoker alcohol intake: never substance use type: former substance user, marijuana, heroin, tranquilizers and methamphetamine current occupational status: other Travel in the last 8 weeks: None housing: house current occupational exposures/hazards: No caffeine: No Have you lived/traveled outside [place] in past 30 days?: No Contact w/someone who lives/traveled outside US past 30 days?: No Exposure to someone with infectious disease in past 14 days?: No Do you have a fever (greater than 100.4 F or 38 C)?: No Have you tested positive for COVID-19: No Exposed to someone with COVID-19 in past 14 days?: No Do you have a sore throat?: No Do you have a cough?: No Do you have any weakness?: No Do you have any diarrhea?: No Are you experiencing any unusual bleeding?: No Do you have any muscle aches/pain?: Yes Do you have any abdominal pain?: No Are you experiencing loss of taste or smell?: No Other Medical History Have you received the Flu Vaccine for this season: No Have you received the Pneumonia Vaccine: No ROS Obtained: Yes All systems reviewed & no additional complaints except as documented Physical Exam General General appearance: alert and in no apparent distress Respiratory Respiratory exam: Present normal lung sounds bilaterally Cardiovascular Cardiovascular exam: Present regular rate Neurological Exam Neurological exam: Present alert and oriented X3 Skin Skin exam: Present other (Erythematous rash with small linear areas that are convalescent on the right upper extremity back abdomen sparing the face) Medical Decision Making Medical Records Screening: Per USPSTF and CDC recommendations, given the prevalence of disease in our region, it is our hospital?s policy to screen for HIV and viral Hepatitis for all patients aged 18 and over and those with ongoing risk factors. Kailash Inquiry Pt receiving controlled substance: No Vital Signs: 02/23/24 19:16 Temperature 98.8 F Temperature Source Oral Pulse Rate [Right Radial] 103 H Respiratory Rate 20 Blood Pressure [Right Arm] 141/108 H Blood Pressure Mean [Right Arm] 119 Blood Pressure Source [Right Arm] Automatic Cuff 02 Sat by Pulse Oximetry 99 Oxygen Delivery Method Room Air Medical Decision Narrative: Nontoxic well-appearing 33-year-old with nonspecific erythematous rash history a nd physical concerning for possible scabies. Not specific with any marginal life-threatening condition I discussed with the patient that this is a nondefinitive diagnosis and the fact that there similar symptoms in household contact we will treat for possible scabies/mites. Permethrin cream has been administered Droxia seen prescribed for itching follow-up with dermatology given patient was discharged in stable condition. Critical Care Critical Care Time Critical Care Time: No
[2024-02-23 19:40] VITALS: BP 141/108; PULSE 98; RESP 18; TEMP 37.1; O2SAT 99
== END 2024-02-23 19:47 | disposition home or self-care (01) ==
PROVIDERS: Emergency Provider Student in an Organized Health Care Education/Training Program; PCP Nurse Practitioner
DX: R21 Rash and other nonspecific skin eruption (principal)
CPT/HCPCS: 99283

== ENCOUNTER 2024-04-08 14:41 | Outpatient (CLI) | payer OTHER, SELFPAY ==
[2024-04-08 19:41] LABS: Coronavirus 19, PCR Not Detected (NotDetected); Human Rhinovirus Not Detected (NotDetected); Influenza A, PCR Not Detected (NotDetected); Influenza B, PCR Not Detected (NotDetected); Respiratory Syncytial Virus Not Detected (NotDetected)
== END 2024-04-08 23:59 | disposition home or self-care (01) ==
LOC: LAB.DROPOF 04-11 09:26
PROVIDERS: PCP Nurse Practitioner; Visit Provider Nurse Practitioner
DX: J06.9 Acute upper respiratory infection, unspecified (principal)
CPT/HCPCS: 87631

== ENCOUNTER 2024-09-12 16:20 | Outpatient (CLI) | payer OTHER, SELFPAY ==
[2024-09-12 20:26] LABS: Alanine Aminotransferase 23 U/L (12-78); Albumin Level 4.6 g/dl (3.5-5.0); Albumin/Globulin Ratio 1.6 (1.1-1.8); Alkaline Phosphatase 76 U/L (38-126); Anion Gap 14.3 mEq/L (5-15); Aspartate Amino Transferase 30 U/L (14-36); Bilirubin,Total 0.2 mg/dl (0.2-1.3); Blood Urea Nitrogen 11 mg/dl (7-17); Calcium 10.4 mg/dl (8.4-10.2); Carbon Dioxide 26 mmol/L (22.0-30.0); Chloride 104 mmol/L (98-107); Creatinine,Serum 0.60 mg/dl (0.52-1.04); Estimated Glomerular Filt Rate 114 ml/min (>60); GFR (African American) 138 ML/MIN (>60); Globulin 2.8 g/dL (1.3-3.2); Glucose 95 mg/dl (74-100); Hematocrit 39.1 % (37.0-47.0); Hemoglobin 11.9 g/dL (12.2-16.2); Immature Granulocytes % 0.6 %; Mean Corpuscular HGB Conc 30.4 g/dL (31.8-35.4); Mean Corpuscular Hemoglobin 23.5 pg (27.0-31.2); Mean Corpuscular Volume 77.3 fl (81-99); Nucleated Red Blood Cells % 0 %; Platelet Count 278 K/mm3 (142-424); Potassium 4.3 mmoL/L (3.5-5.1); Red Blood Count 5.06 M/mm3 (4.20-5.40); Red Cell Distribution Width-SD 41.4 fL; Sodium 140 mmol/L (136-145); Total Protein,Serum 7.4 g/dl (6.3-8.2); White Blood Count 12.2 K/mm3 (4.8-10.8)
[2024-09-12 20:54] LABS: Thyroid Stimulating Hormone 2.16 uIU/mL (0.465-4.68)
--- OUTSIDE RECORDS SUMMARY | 2024-09-13 10:30 | XMS_ITS | Clinical Summary ---
Author Organization [facility] Address [address] [place] [address] Phone Care Team Providers Care Fiber Optics Technician Name Role Phone Unavailable Primary Care Provider Unavailabl e Allergies Active Allergy Reactions Criticality Noted Date Comments Codeine 11/14/2009 Hydrocodone Itching 10/26/2009 Morphine 10/06/2014 HEADACHE Penicillins Rash 05/08/2014 Tramadol 11/14/2009 Medications * This document contains information received from the source organization and may not represent a complete record from that organization. mirtazapine (REMERON) 15 mg Oral Tablet Take 15 mg by mouth daily. 12/24/2019 Active buPROPion (WELLBUTRIN XL) 150 mg Oral Tablet Sustained Release 24 hr Take 150 mg by mouth daily. 06/08/2023 Active buPROPion (WELLBUTRIN XL) 300 mg Oral Tablet Sustained Release 24 hr Take 300 mg by mouth every morning. 06/06/2023 Active Active Problems Problem Noted Date Diagnosed Date Uncomplicated opioid dependence 01/10/2019 Overview (12/20/2019): DOC, heroin, snorts. Last use was 2018 On suboxone. Generalized anxiety disorder 01/10/2019 Overview (01/10/2019): Underlying bipolar. Increasing anxiety with sobriety. +Tachycardia. Given propranolol bid. PRN clonidine for anxiety, cravings. Polysubstance abuse 08/22/2017 Overview (01/10/2019): Meth, mj and heroin. Prescribed suboxone for short time per rehab Declines MAT Bipolar disorder with depression 08/22/2017 Overview (12/20/2019): In Counseling. On risperidone and vistaril. Tried and failed multiple other meds in past. Assessment & Plan (01/10/2019 11:17 AM EST): Increased seroquel at night for insomnia. Continue paxil at same dose. Follow-up 4 weeks. Marijuana abuse 08/20/2014 Overview (12/20/2019): Stopped. Did switch to CBD. Hasn't use CBD since 10/31/19 Migraine headache 12/16/2009 Overview (12/20/2019): Restart topamax for dual management of weight gain and migraine Resolved Problems Problem Noted Date Diagnosed Date Resolved Date Obesity, Class I, BMI 30-34.9 01/10/2019 12/20/2019 Overview (01/10/2019): Diet/exercise. BMI 32.0-32.9,adult 08/22/2017 01/11/20 19 Overview (08/22/2017): Manage with diet/exercise. Failed drug screen 08/20/2014 8 Ureteral calculus 05/09/2014 08/22/2017 Tension headache 12/16/2009 08/22/2017 Depression 12/16/2009 08/22/2017 Anxiety 12/16/2009 08/22/2017 Surgical History Surgery Date Site/Laterality Comments CHOLECYSTECTOMY September 2009 gall stones taken out also TONSILLECTOMY DENTAL SURGERY root canal CYSTOSCOPY 05/08/2014 Left CYSTOSCOPY LEFT RETROGRADE LASER LITHOTRIPSY STENT INSERTION left ureteroscopy, stone manipulation and retrieval ; Surgeon: Tiara Saxena MD; Location: [facility]; Service: Urology Medical devices from this surgery are in the Medical Devices section. CYSTOSCOPY 05/08/2014 Surgeon: Tiara Saxena MD; Location: [facility]; Service: Urology Medical devices from this surgery are in the Medical Devices section. Medical History Medical History Date Comments Allergy Migraine Restrictive airway disease Heartburn Depression Clotting disorder problem clotti ng after childbirth Anxiety Kidney stone Bipolar affective disorder (HCC) Family History Medical History Relation Name Comments No Known Problems Brother 1 No Known Problems Brother 2 No Known Problems Child Bipolar Disorder Father Depression Father Diabetes Father Anxiety Disorder Maternal Aunt Alzheimer's Disease Maternal Grandfather Bipolar Disorder Maternal Grandmother Breast Cancer Maternal Grandmother Cervical Cancer Maternal Grandmother Depression Maternal Grandmother Anxiety Disorder Maternal Uncle Anxiety Disorder Mother Bipolar Disorder Mother Depression Mother Diabetes Mother High Blood Pressure Mother Heart Disease Paternal Grandfather Heart Failure Paternal Grandfather High Blood Pressure Paternal Grandfather Bipolar Disorder Paternal Grandmother Diabetes Paternal Grandmother High Blood Pressure Paternal Grandmother High Cholesterol Paternal Grandmother Endometrosis Sister 1 High Blood Pressure Sister 1 No Known Problems Sister 2 No Known Problems Son 1 No Known Problems Son 2 Relation Name Status Comments Brother 1 Alive Brother 2 Alive Child Alive Father Alive Maternal Aunt Maternal Grandfather Maternal Grandmother Maternal Uncle Mother Alive Paternal Grandfather Alive Paternal Grandmother Alive Sister 1 Alive Sister 2 Alive Son 1 Alive Son 2 Alive Social History Tobacco Use Types Packs/Day Years Used Date Smoking Tobacco: Former Cigarettes Smokeless Tobacco: Never Tobacco Cessation:Counseling Given: Not Answered Alcohol Use Standard Drinks/Week Comments No 0 (1 standard drink = 0.6 oz pur e alcohol) PHQ-2 Answer Date Recorded PHQ-2 Total Score 0 12/20/2019 Comments No Sex and Gender Information Value Date Recorded Sex Assigned at Not on file Legal Sex Female 6:26 AM EDT Gender Identity Not on file Sexual Orientation Not on file Obstetrics History Last Filed Vital Signs Vital Sign Reading Time Taken Comments Blood Pressure 120/63 08/14/2023 1:21 PM EDT Pulse 61 08/14/2023 1:21 PM EDT Temperature 37.2 C (99 F) 08/14/2023 10:53 AM EDT Respiratory Rate 18 08/14/2023 1:21 PM EDT Oxygen Saturation 99% 08/14/2023 1:21 PM EDT Inhaled Oxygen Concentration - - Weight 90.7 kg (200 lb) 08/14/2023 10:40 AM EDT Height 165.1 cm (5' 5 ) 08/14/2023 10:40 AM EDT Body Mass Index 33.28 08/14/2023 10:40 AM EDT Plan of Treatment Health Maintenance Due Date Last Done Comments Annual Wellness Exam 1992 Cervical Cancer Screening 2010 Pap Smear 2010 HPV/Pap Cotest 08/16/2019 DTaP/TDaP/Td (7 - Td or Tdap) 10/10/2019 10/09/2009, 08/16/2002, 10/12/1993, Additional history exists COVID-19 Vaccine ( - 2023- season) 2023 Influenza Vaccine (#1) 2024 01/22/2015 (Declin ed) Hepatitis B Vaccine Completed 08/16/2002, 10/30/2001, 09/03/2001 Meningococcal B Vaccine Aged Out No l onger eligible based on patient's age to complete this topic Pneumococcal Vaccine 0-49 Aged Out No longer eligible based on patient's age to complete this topic Goals Goal Patient Goal Type Associated Problems Recent Progress Patient-Stated? Author Maintain a healthy diet, exercise regularly and maintain an ideal body weight General No Lucia Omer RMA Stay Tobacco Free Lifestyle No Lucia Omer RMA Medical Devices Implanted Type Area Waiter/Waitress Tourist Class Device Identifier Shelf Expiration Date Model / Serial / Lot Stent Contour 6 X 24 #[id number] - [id number] Implanted:Qty: 1 on 05/08/2014 by Tiara Saxena MD at [facility] Stent Left: Ureter [employer]:MICROV[employer]: UROLOGY 01/07/2017 [id number] / / [id number] [id number] * Guarantor: Roman Hager Account Type Relation to Patient Date of Phone Billing Address [place] Personal Family Self
--- OUTSIDE RECORDS SUMMARY | 2024-09-13 10:30 | XMS_ITS | Clinical Summary ---
Author Organization [facility] Address [address] [place] [address] Care Team Providers Care Continuity Person Name Role Phone Unavailable Primary Care Provider Unavailabl e Social History Tobacco Use Types Packs/Day Years Used Date Smoking Tobacco: Never Assessed Comments Unknown Sex and Gender Information Value Date Recorded Sex Assigned at Not on file Legal Sex Female 6:35 PM EDT Gender Identity Not on file Sexual Orientation Not on file Plan of Treatment Not on file Insurance
== END 2024-09-12 23:59 | disposition home or self-care (01) ==
LOC: LAB.DROPOF 09-13 10:27
PROVIDERS: PCP Nurse Practitioner Family; Visit Provider Nurse Practitioner Family
DX: F41.1 Generalized anxiety disorder (principal); E11.9 Type 2 diabetes mellitus without complications; E66.9 Obesity, unspecified
CPT/HCPCS: 80053; 84443; 85025